=== PATIENT | female | born 1985 | race American Indian/Alaskan Native ===

== ENCOUNTER 2017-04-21 13:19 | Outpatient (CLI) | payer MEDICAID ==
[2017-04-21 15:13] LABS: Bilirubin,Urine NEG (Negative); Blood,Urine LG (Negative); Color,Urine Yellow (Yellow); Mucus,Urine FEW /HPF; Nitrite,Urine NEG (Negative); Urobilinogen,Urine < 2.0 mg/dL (<2.0)
[2017-04-21 15:19] VITALS: BP 140/80
[2017-04-21] MEDS ORDERED: LACTATED RINGERS 500 ML IV ONE (16:00)
[2017-04-21] MEDS ORDERED: XYLOCAINE 1% MPF 5 mL INFILTRATI ONE (17:00)
--- NOTE | 2017-04-21 17:32 | Ultrasound Report ---
FINAL REPORT EXAM: US OB > = 14 WEEKS FETUS HISTORY: vaginal bleeding TECHNIQUE: Ultrasound evaluation of the gravid uterus PRIORS: None. FINDINGS: There is a single viable intrauterine with documented cardiac activity. Multiple ultrasound measurements are made to determine a composite gestational age. ratios are within normal limits. No evidence of placental abruption. The inferior margin of the placenta reaches the internal cervical os. On some images it is at the margin and other images appears to completely cover the internal cervical os. This is at least marginal placenta previa and may reflect complete placenta previa. The maternal cervix is closed, containing nonspecific slight fluid. The quantity of visualized amniotic fluid appears grossly normal. No sonographic abnormality in the visualized portion of the anatomy. Heart rate: 149 beats per minute position: Cephalic Placental position: Posterior Maternal cervix length: 3.7cm Amniotic fluid index: 14.0cm Estimated weight: 1557 g Growth percentile by ultrasound: 7 Ultrasound estimated gestational age: 30 weeks 1 day Ultrasound estimated delivery date: 06/29/2017 LMP estimated gestational age: 31 week 6 days LMP estimated delivery date: 06/17/2017 IMPRESSION: Single viable intrauterine with the above parameters ratios within normal limits but growth percentile by ultrasound is 7 % At least marginal placenta previa. Some images suggest possibility of complete placenta previa Nonspecific slight fluid in the endocervical canal
[2017-04-21] MEDS ORDERED: ZITHROMAX PO ONE (18:00)
[2017-04-21] MEDS ORDERED: ROCEPHIN IM ONE (18:00)
== END 2017-04-21 17:20 | disposition home or self-care (01) ==
LOC: TRG 13:19
PROVIDERS: ATTEND Obstetrics & Gynecology
DX: O47.03 False labor before 37 completed weeks of gestation, third trimester (principal); Z3A.30 30 weeks gestation of pregnancy
CPT/HCPCS: 59025; 76805; 81001; J0696

== ENCOUNTER 2017-05-31 07:30 | Inpatient (IN) | payer MEDICAID ==
--- NOTE | 2017-05-31 22:56 | History and Physical Report ---
History of Present Illness Date of examination: 06/01/17 Chief complaint: Scheduled section History of present illness: Pt is a 31 year old -[place] HERMES 06/17/17 at 37w5d who presents for scheduled section secondary to placenta previa. She denies contractions, vaginal bleeding or leakage of fluid. She has had care at [facility] x 2 visits after transfer into care from [facility] with comanagement by MFM for placenta previa, chronic hypertension, h/o preeclampsia and IUGR. She has a h/o genital herpes without lesion or prodrome and gonorrhea this treated with negative test of cure. 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: gonorrhea (treated with negative test of cure ), herpes Family/Genetic History: diabetes Social history: no significant social history - Obstetrical History Expected Date of Delivery: 06/17/17 Actual Gestation: 37 Week(s) 4 Day(s) : 4 Para: 1 Hx # Term Pregnancies: 1 Number of Pregnancies: 0 Spontaneous Abortions: 0 Induced : 2 Number of Living Children: 1 Medications and Allergies Allergies Allergy/AdvReac Type Severity Reaction Status Date / Time No Known Allergies Allergy Verified 04/30/14 15:51 Home Medications Medication Instructions Recorded Confirmed Last Taken Type 19 Chewable Tablet 1 tab PO DAILY 06/04/14 08/20/14 1 Day Ago History ~06/03/14 1 Valacyclovir HCl [Valtrex] 1,000 mg PO DAILY 08/20/14 08/20/14 Unknown History Active Meds: Active Medications Citric Acid/Sodium Citrate (Bicitra) 30 ml PO ONCE ONE Stop: 06/01/17 05:01 Famotidine (Pepcid) 20 mg IV ONCE ONE Stop: 06/01/17 05:01 Cefazolin Sodium (Ancef/Sterile Water 2 Gm/20 Ml) 2 gm in 20 mls @ 80 mls/hr IV PREOP NR; Protocol Parenteral Electrolytes (Normosol-R Ph 7.4) 1,000 mls @ 2,250 mls/hr IV PREOP PARKER Stop: 06/02/17 05:27 Oxytocin/Sodium Chloride (Pitocin/Ns 20 Unit/1000ml Drip) 20 units in 1,000 mls @ 0 mls/hr IV TITR PARKER Metoclopramide HCl (Reglan) 10 mg IV ONCE ONE Stop: 06/01/17 05:01 Review of Systems All systems: negative - Physical Exam Breasts: Positive: deferred Abdomen: Positive: soft (gravid) Uterus: Positive: enlarged (gravid) Extremities: Positive: normal - Obstetrical FHR: auscultation normal Uterine Contraction Monitor Mode: External Uterine Contraction Pattern: Absent Uterine Tone Measurement Phase: Resting Results All other labs normal. Assessment and Plan A: IUP at 37w5d Placenta previa IUGR Chronic hypertension H/o preeclampsia Genital Herpes P: Proceed with primary section and other indicated procedures.
[2017-06-01] MEDS ORDERED: PITOCin/NS 20 UNIT/1000ML DRIP 20 UNITS/1,000 ML BAG IV SCH (05:00)
[2017-06-01] MEDS ORDERED: BICITRA PO NR (05:00)
[2017-06-01] MEDS ORDERED: NORMOSOL-R PH 7.4 1,000 ML IV SCH (05:00)
[2017-06-01] MEDS ORDERED: PEPCID IV NR (05:00)
[2017-06-01 06:00] LABS: Basophils % (Auto) 0.5 % (0.0-1.8); Eosinophils % (Auto) 0.5 % (0.0-4.3); Hematocrit 37.2 % (30.3-42.9); Hemoglobin 12.2 gm/dl (10.1-14.3); Lymphocytes % (Auto) 22.2 % (13.4-35.0); Mean Corpuscular HGB Conc 33 % (30-34); Mean Corpuscular Hemoglobin 28 pg (28-32); Mean Corpuscular Volume 84 fl (79-97); Monocytes # (Auto) 0.5 K/mm3 (0.0-0.8); Monocytes % (Auto) 5.5 % (0.0-7.3); Platelet Count 227 K/mm3 (140-440); Red Blood Count 4.41 M/mm3 (3.65-5.03); Red Cell Distribution Width 13.8 % (13.2-15.2)
[2017-06-01] MEDS ORDERED: ANCEF/STERILE WATER 2 GM/20 ML 2 GM/20 ML SYRINGE IV NR (06:00)
[2017-06-01] MEDS: REGLAN IV NR ×2 (07:13→16:30)
--- NOTE | 2017-06-01 07:28 | Anesthesia Day of Surgery ---
Anesthesia Day of Surgery - Day of Surgery Patient Examined: Yes Patient H&P Reviewed: Yes Patient is NPO: Yes
--- NOTE | 2017-06-01 07:29 | Anesthesia Consultation ---
Anesthesia Consult and Med Hx Date of service: 06/01/17 - Airway Anesthetic Teeth Evaluation: Good ROM Head & Neck: Adequate Mental/Hyoid Distance: Adequate Mallampati Class: Class III Intubation Access Assessment: Possibly Difficult - Pulmonary Exam CTA: Yes - Cardiac Exam Cardiac Exam: RRR - Pre-Operative Health Status ASA Pre-Surgery Classification: ASA2 Proposed Anesthetic Plan: Spinal - Pulmonary Hx Asthma: No COPD: No Hx Pneumonia: No - Cardiovascular System Hx Hypertension: Yes (in 2006 in college, not placed on medication, just bp monitoring) - Central Nervous System Hx Seizures: No Hx Psychiatric Problems: No - Endocrine Hx Renal Disease: No Hx End Stage Renal Disease: No Hx Hypothyroidism: No Hx Hyperthyroidism: No - Hematic Hx Anemia: No Hx Sickle Cell Disease: No - Other Systems Hx Alcohol Use: No
[2017-06-01] MEDS ORDERED: ASTRAMORPH PF 10MG/10ML ONE (07:30)
[2017-06-01] MEDS ORDERED: NACL 0.9% IR ONE (07:40)
[2017-06-01] MEDS ORDERED: WATER FOR IRRIG STERILE IR ONE (07:40)
[2017-06-01] MEDS: PITOCin/NS 20 UNIT/1000ML DRIP 20 UNITS/1,000 ML BAG IV SCH ×2 (08:10→09:58)
--- NOTE | 2017-06-01 08:56 | Procedure Note ---
OB Delivery Note - Delivery Date of Delivery: 06/01/17 Surgeon: CHELA SALDAÑA Estimated blood loss: other (700 mL) - Section Preop diagnosis: other (Placenta Previa ) Postop diagnosis: same section procedure: section, primary low transverse Disposition: PACU Complications: none Narrative: Please see operative report. - Infant A at 1 minute: 9 at 5 minutes: 9 Infant Gender: Female (2717g (6lb 0 oz) @ 0808 am)
--- NOTE | 2017-06-01 09:00 | Operative Report ---
Operative Report Operative Report: Date of procedure: June 01, 2017 Preoperative diagnosis: 1) IUP at 37w5d 2) Placenta Previa 3) IUGR 4) Chronic HTN Postoperative diagnosis: Same Procedure: Primary low transverse section Surgeon: Ashleigh Vigil M.D. Anesthesia: Spinal Findings: 1) Viable female , Apgars 9 and 9, weight 2717g, (6 lb 0 oz) in vertex presentation 2) Normal-appearing uterus ovaries and tubes Estimated blood loss: 700 mL IV fluids:1100 mL Urine output: 50 mL, clear at the end of the procedure Drains: Owens to gravity Specimens: Placenta to pathology Complications: None. Counts correct x 3 Disposition: Stable to PACU Indication for procedure: Pt is a 31 year old at 37w5d with placenta previa, IUGR and chronic hypertension who presents for scheduled . Operation in detail: After the risks, benefits, alternatives and complications were explained to the patient she gave informed consent for the procedure. She was subsequently taken to the operating room where spinal anesthesia was noted to be adequate. She was subsequently placed in the dorsal supine position with leftward tilt and prepped and draped in a normal sterile fashion. heart tones were noted to be in the 160s prior to incision. A timeout was performed. A Pfannenstiel skin incision was made with the knife and carried down to the layer of the fascia with the Bovie. The fascia was incised in the midline and the fascial incision was extended bilaterally with the Bovie. Attention was then turned to the superior aspect of the incision which was grasped with two Kochers, tented up, and dissected off the rectus muscles. Attention was then turned to the inferior aspect of the incision which was grasped with two Kochers , tented up and dissected off the rectus muscles. The rectus muscles were then in the midline. The peritoneum was then entered bluntly. The peritoneal incision was extended with good visualization of the bladder. The peritoneal incision was then stretched. An Andrew self-retaining retractor was placed for visualization. The bladder blade was placed. The vesicouterine peritoneum was grasped with smooth pickups and incised with Metzenbaum scissors. Metzenbaum scissors were used to extend the incision bilaterally. The bladder flap was then created digitally and the bladder blade was replaced. A transverse incision was made in the lower uterine segment with a knife and extended bilaterally with the bandage scissors. Amniotomy revealed clear fluid. The head was delivered without difficulty followed by shoulders and body. was bulb suctioned at delivery. The cord was clamped and cut and the was handed to NICU staff in attendance. Cord blood was collected. The placenta was then delivered manually. The uterus was then cleared of all clots and debris. The hysterotomy was then reapproximated with 0 Vicryl in a running locked fashion. A second layer of the same suture was used in imbricating fashion. The hysterotomy was inspected and hemostasis was noted. The Andrew self-retaining retractor was removed. The gutters were irrigated and cleared of all clots and debris. The hysterotomy was again inspected and noted to be hemostatic. Surgicel was placed over the hysterotomy. The peritoneum was reapproximated with 2-0 Vicryl in a running fashion incorporating the rectus muscles. Surgicel was placed over the rectus muscles. The fascia was reapproximated with 0 Vicryl in a running fashion. The subcutaneous tissue was reapproximated with 2-0 Vicryl in a running fashion. The skin was reapproximated with 4-0 Vicryl. The incision was then covered with steri strips and a pressure dressing. The procedure was then ended. The patient tolerated the procedure well and was taken to the PACU in stable condition. All instrument, lap, and needle counts were correct 3.
[2017-06-01] MEDS ORDERED: DILAUDID IV PRN ×3 (09:12→09:18)
[2017-06-01] MEDS ORDERED: NARCAN 0.4 MG/1 ML IV PRN ×2 (09:12→09:18)
[2017-06-01] MEDS ORDERED: SODIUM CHLORIDE FLUSH SYRINGE 10 ML IV SCH (09:18)
[2017-06-01] MEDS ORDERED: MYLICON PO PRN (09:18)
[2017-06-01] MEDS ORDERED: TYLENOL PO PRN (09:18)
[2017-06-01] MEDS ORDERED: LANSINOH TP PRN (09:18)
[2017-06-01] MEDS ORDERED: ZOFRAN IV PRN (09:18)
[2017-06-01] MEDS ORDERED: TUCKS PAD TP PRN (09:18)
[2017-06-01] MEDS ORDERED: ANCEF/NS 1 GM/50 ML 1 GM/50 ML BAG IV SCH (10:00)
[2017-06-01] MEDS ORDERED: SODIUM CHLORIDE FLUSH SYRINGE 10 ML IV NR (10:00)
[2017-06-01] MEDS: ZOFRAN IV PRN (11:30)
[2017-06-01] MEDS: FEOSOL PO SCH (12:34)
[2017-06-01] MEDS: ceFAZolin 1 GM in NACL 0.9% 20 ML IV SCH (15:30)
[2017-06-01] MEDS: TORADOL IV PRN (16:10)
[2017-06-01] MEDS ORDERED: REGLAN IV ONE (17:00)
[2017-06-01] MEDS: D5LR 1,000 ML IV SCH (17:28)
[2017-06-01] MEDS ORDERED: REGLAN IV PRN (17:39)
[2017-06-01 20:42] LABS: Hematocrit 33.8 % (30.3-42.9); Hemoglobin 10.8 gm/dl (10.1-14.3)
[2017-06-02] MEDS: TORADOL IV PRN (00:08)
[2017-06-02] MEDS: D5LR 1,000 ML IV SCH (00:08)
[2017-06-02] MEDS: ceFAZolin 1 GM in NACL 0.9% 20 ML IV SCH (00:54)
[2017-06-02] MEDS: ZOFRAN IV PRN (05:05)
[2017-06-02] MEDS ORDERED: BOOSTRIX IM ONE (06:00)
[2017-06-02] MEDS ORDERED: M-M-R II VACCINE SUB-Q ONE (09:02)
[2017-06-02] MEDS: FEOSOL PO SCH (11:13)
[2017-06-02] MEDS: MOTRIN PO PRN ×2 (11:21→17:31)
--- NOTE | 2017-06-02 13:05 | Progress Note ---
Assessment and Plan O: VSS AF PP H/H: 10.8/33.8 A: Stable POD #1 Mild Anemia P: Routine orders iron Subjective - Subjective Date of service: 06/02/17 Patient reports: appetite normal (nausea resolved this am around 5 am, tolerating regular diet), voiding normally, pain well controlled, flatus, ambulating normally [place]: doing well Objective - Vital Signs Latest vital signs: Vital Signs Temp Pulse Resp BP BP Pulse Ox 06/02/17 08:41 98.2 F 80 18 121/78 100 06/02/17 06:36 98.1 F 77 18 113/60 99 06/02/17 02:22 98.1 F 79 18 113/66 99 06/02/17 00:38 18 06/02/17 00:08 18 06/01/17 22:22 98.3 F 78 20 110/70 98 06/01/17 15:59 97.9 F 88 18 125/79 97 Intake and Output 06/01/17 06/02/17 06/02/17 22:59 06:59 14:59 Intake Total 1193.333 Output Total 400 300 Balance -400 893.333 Intake: IV 833.333 D5lr 1,000 ml @ 125 mls/ 833.333 hr IV DIRECT PARKER Rx#: [id number] Intake, Free Water 360 Output: Urine 400 300 Indwelling Catheter 400 Void 300 Other: Total, Output Amount 100 300 - Exam Breasts: Present: deferred Lungs: Present: Normal air movement Abdomen: Present: normal appearance, soft. Absent: distention Vulva: both: normal Uterus: Present: normal, firm, tenderness (post op), fundal height below umbilicus (2 below U, ML). Absent: bogginess Extremities: Present: normal Incision: Present: normal, dry, intact, dressed
[2017-06-02] MEDS: MILK OF MAGNESIA PO SCH ×2 (15:20→17:31)
[2017-06-02] MEDS: PERCOCET 5/325 PO PRN (22:46)
[2017-06-03] MEDS: MOTRIN PO PRN ×3 (04:10→20:23)
[2017-06-03] MEDS: MILK OF MAGNESIA PO SCH ×4 (04:11→16:11)
[2017-06-03] MEDS: PERCOCET 5/325 PO PRN ×3 (04:11→20:24)
[2017-06-03] MEDS: FEOSOL PO SCH ×2 (11:15)
--- NOTE | 2017-06-03 15:02 | Discharge Summary ---
Providers - Providers Date of Admission: 06/01/17 05:24 Date of discharge: 06/04/17 Attending physician: CHELA SALDAÑA Primary care physician: CHELA SALDAÑA Hospitalization Reason for admission: IUP at term Delivery: Procedure: section, primary low transverse Episiotomy: none Laceration: none Incision: normal, dry, intact Other procedures: none Discharge diagnosis: IUP at term delivered [place] baby: male Condition at discharge: Good Disposition: DC-01 TO HOME OR SELFCARE Plan - Discharge Medications Prescriptions: Ibuprofen [Motrin] 800 mg PO Q8HR PRN #30 tablet PRN Reason: Pain oxyCODONE /ACETAMINOPHEN [Percocet 5/325] 1 tab PO Q6HR PRN #40 tablet PRN Reason: Pain - Provider Discharge Summary Activity: routine, no sex for 6 weeks, no heavy lifting 4 weeks, no strenuous exercise Diet: routine Instructions: routine Additional instructions: [] Smoking cessation referral if applicable(refer to patient education folder for contact #) [] Refer to [facility] Call your doctor immediately for: * Fever > 100.5 * Heavy vaginal bleeding ( >1 pad per hour) * Severe persistent headache * Shortness of breath * Reddened, hot, painful area to leg or breast * Drainage or odor from incision. * Keep incision clean and dry at all times and follow doctor's instructions regarding bathing/showering - Follow up plan Follow up: CHELA SALDAÑA MD [Primary Care Provider] - 14 Days (RTO 2 weeks incision check. Call office to schedule infant circumcision)
[2017-06-04] MEDS: MOTRIN PO PRN ×2 (04:29→11:35)
[2017-06-04] MEDS: PERCOCET 5/325 PO PRN ×2 (04:29→11:35)
[2017-06-04] MEDS: MILK OF MAGNESIA PO SCH ×2 (06:00)
[2017-06-04] MEDS: FEOSOL PO SCH (11:34)
[2017-06-04 13:38] VITALS: BP 138/91
== END 2017-06-04 13:30 | disposition home or self-care (01) | DRG 765 ==
LOC: APU 06-01 05:24 → OB 06-01 11:29
PROVIDERS: ADMIT Obstetrics & Gynecology; ATTEND Obstetrics & Gynecology
PROC: 10D00Z1 Extraction of Products of Conception, Low, Open Approach (ICD-10-PCS; principal; 2017-06-01)
PROC: 3E0234Z Introduction of Serum, Toxoid and Vaccine into Muscle, Percutaneous Approach (ICD-10-PCS; 2017-06-02)
DX: O44.03 Complete placenta previa NOS or without hemorrhage, third trimester (principal); O98.32 Other infections with a predominantly sexual mode of transmission complicating childbirth; O10.92 Unspecified pre-existing hypertension complicating childbirth; Z3A.37 37 weeks gestation of pregnancy; Z37.0 Single live birth; Z23 Encounter for immunization; O36.5930 Maternal care for other known or suspected poor fetal growth, third trimester, not applicable or unspecified; A60.00 Herpesviral infection of urogenital system, unspecified; O90.81 Anemia of the puerperium; D64.9 Anemia, unspecified
CPT/HCPCS: 36415; 85014; 85018; 85025; 86850; 86900; 86901; 88307; 90471; 90715; J0690; J1885; J2274; J2405; J2590; J2765; J7121

== ENCOUNTER 2017-06-18 08:58 | Inpatient (IN) | payer MEDICAID, OTHER ==
[2017-06-18] MEDS ORDERED: APRESOLINE IV PRN (13:27)
[2017-06-18] MEDS ORDERED: MOTRIN PO PRN (13:27)
[2017-06-18] MEDS ORDERED: CALCIUM GLUCONATE IV ONE (13:27)
[2017-06-18] MEDS ORDERED: PERCOCET 5/325 PO PRN (13:27)
[2017-06-18] MEDS ORDERED: NORMODYNE PO ONE ×2 (13:27→23:45)
[2017-06-18] MEDS ORDERED: MAGNESIUM SULFATE 4GM/100ML 4 GM/100 ML BAG IV ONE (13:27)
--- NOTE | 2017-06-18 13:34 | History and Physical Report ---
History of Present Illness Date of examination: 06/18/17 Chief complaint: sent from the office with elevated blood pressures History of present illness: Pt is a 32 year old -[place] female s/p primary section on 06/01/17 with a h/o chronic hypertension who presents to the office with blood pressures 170/104 and 190/110 despite taking labetalol 100mg BID. She denies headache, blurry vision or RUQ pain. 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: gonorrhea (treated with negative test of cure), herpes Family/Genetic History: diabetes Social history: no significant social history - Obstetrical History : 4 Para: 2 Hx # Term Pregnancies: 2 Number of Pregnancies: 0 Spontaneous Abortions: 0 Induced : 2 Number of Living Children: 2 Medications and Allergies Allergies Allergy/AdvReac Type Severity Reaction Status Date / Time No Known Allergies Allergy Verified 04/30/14 15:51 Home Medications Medication Instructions Recorded Confirmed Last Taken Type 19 Chewable Tablet 1 tab PO DAILY 06/04/14 06/01/17 1 Day Ago History ~06/03/14 1 Valacyclovir HCl [Valtrex] 1,000 mg PO DAILY 08/20/14 06/01/17 Unknown History Ibuprofen [Motrin] 800 mg PO Q8HR PRN #30 tablet 06/02/17 Unknown Rx oxyCODONE /ACETAMINOPHEN [Percocet 1 tab PO Q6HR PRN #40 tablet 06/02/17 Unknown Rx 5/325] Active Meds: Active Medications Calcium Gluconate (Calcium Gluconate) 1,000 mg IV ONCE ONE Stop: 06/18/17 13:28 Ferrous Sulfate (Feosol) 325 mg PO BID PARKER Hydralazine HCl (Apresoline) 5 mg IV Q30MIN PRN PRN Reason: Hypertension Lactated Ringer's (Lactated Ringers) 1,000 mls @ 125 mls/hr IV DIRECT PARKER Magnesium Sulfate (Magnesium Sulfate 40gm/1000ml) 40 gm in 1,000 mls @ 25 mls/ hr IV DIRECT PARKER Magnesium Sulfate (Magnesium Sulfate 4gm/100ml) 4 gm in 100 mls @ 300 mls/hr IV ONCE ONE Stop: 06/18/17 13:46 Ibuprofen (Motrin) 800 mg PO Q8H PRN PRN Reason: Pain Labetalol HCl (Normodyne) 300 mg PO BID ONE Stop: 06/18/17 13:28 Oxycodone/Acetaminophen (Percocet 5/325) 1 tab PO Q6H PRN PRN Reason: Pain, Moderate (4-6) Review of Systems All systems: negative - Physical Exam Breasts: Positive: deferred Cardiovascular: Regular rate Lungs: Positive: Clear to auscultation Abdomen: Positive: soft, normal bowel sounds Extremities: Positive: normal Results All other labs normal. Assessment and Plan A: Chronic hypertension with superimposed preeclampsia s/p primary section on 06/01/17 P: Admit to Mother/Baby Unit IV Magnesium sulfate for seizure prophylaxis Increase labetalol to 300 mg BID UDS Continue to monitor
[2017-06-18] MEDS ORDERED: MAGNESIUM SULFATE 40GM/1000ML 40 GM/1,000 ML BAG IV SCH (14:00)
[2017-06-18] MEDS: LACTATED RINGERS 1,000 ML IV SCH (21:44)
[2017-06-18 22:02] LABS: Hematocrit 37.3 % (30.3-42.9); Hemoglobin 12.2 gm/dl (10.1-14.3); Mean Corpuscular HGB Conc 33 % (30-34); Mean Corpuscular Hemoglobin 27 pg (28-32); Mean Corpuscular Volume 83 fl (79-97); Platelet Count 323 K/mm3 (140-440); Red Blood Count 4.49 M/mm3 (3.65-5.03); Red Cell Distribution Width 13.9 % (13.2-15.2)
[2017-06-18 22:19] LABS: Alanine Aminotransferase 13 units/L (7-56); Uric Acid 4.9 mg/dL (3.5-7.6)
[2017-06-18] MEDS: FEOSOL PO SCH (23:36)
[2017-06-19 00:05] LABS: Bilirubin,Urine NEG (Negative); Blood,Urine NEG (Negative); Color,Urine Yellow (Yellow); Mucus,Urine 2+ /HPF; Protein,Urine <15 mg/dL mg/dL (Negative); RBC,Urine < 1.0 /HPF (0.0-6.0); Urobilinogen,Urine < 2.0 mg/dL (<2.0)
[2017-06-19 00:24] LABS: Amphetamine Screen,Urine PRESUMPTIVE NEGATIVE; Benzodiazepines Screen,Urine PRESUMPTIVE NEGATIVE; Cannabinoid Screen,Urine PRESUMPTIVE NEGATIVE; Cocaine Screen,Urine PRESUMPTIVE NEGATIVE; Methadone Screen,Urine PRESUMPTIVE NEGATIVE; Opiate Screen,Urine PRESUMPTIVE NEGATIVE
[2017-06-19] MEDS: LACTATED RINGERS 1,000 ML IV SCH (05:04)
--- NOTE | 2017-06-19 08:59 | Progress Note ---
Assessment and Plan - Patient Problems (1) Preeclampsia in period Current Visit: Yes Status: Acute Plan to address problem: complete magnesium therapy add procardia XL to regimen (2) Gestational hypertension Current Visit: No Status: Acute Subjective - Subjective Date of service: 06/19/17 Interval history: Patient without any significant complaints. Improved blood pressures on magnesium but not normotensive. Labs unremarkable. Patient will complete 24hours of magnesium therapy. Patient reports: appetite normal, voiding normally Objective - Vital Signs Latest vital signs: Vital Signs Temp Pulse Resp BP BP Pulse Ox 06/19/17 07:27 98.5 F 72 18 167/104 97 06/19/17 06:02 98.5 F 78 18 150/94 06/19/17 05:34 98.0 F 71 20 171/97 99 06/19/17 03:30 98.0 F 71 148/86 96 06/18/17 23:44 98.5 F 88 150/94 06/18/17 23:37 88 160/90 06/18/17 23:06 98.6 F 67 20 197/104 99 06/18/17 20:52 98 F 66 20 167/97 Intake and Output 06/18/17 06/19/17 06/19/17 22:59 06:59 14:59 Intake Total 1276.667 Output Total 1100 Balance 176.667 Intake: IV 916.667 Lactated Ringers 1,000 ml 916.667 @ 125 mls/hr IV DIRECT PARKER Rx#:[id number] Intake, Free Water 360 Output: Urine 1100 Indwelling Catheter 1100 Other: Total, Output Amount 1100 Voiding Method Indwelling Catheter Indwelling Catheter Weight 79.832 kg - Labs Labs: Abnormal lab results 06/18/17 06/18/17 06/19/17 Range/Units 21:33 21:33 04:29 MCH 27 L (28-32) pg Magnesium 3.80 H (1.7-2.3) mg/dL Lactate Dehydrogenase 229 H (91-180) units/L
[2017-06-19] MEDS: PROCARDIA XL PO SCH (10:59)
[2017-06-19] MEDS: FEOSOL PO SCH (10:59)
[2017-06-19] MEDS: NORMODYNE PO SCH (12:48)
[2017-06-20] MEDS: NORMODYNE PO SCH ×2 (00:04→10:35)
[2017-06-20] MEDS: FEOSOL PO SCH ×2 (00:05→10:35)
--- NOTE | 2017-06-20 09:30 | Progress Note ---
Assessment and Plan A: Chronic hypertension with superimposed preeclampsia s/p 24 hr of magnesium sulfate tocolysis s/p primary section on 06/01/17 P: Discharge home today with follow up in 1 week. Subjective - Subjective Date of service: 06/20/17 Principal diagnosis: Chronic HTN with superimposed preeclampsia Interval history: Pt without complaints. No PIH symptoms. Patient reports: appetite normal, voiding normally, ambulating normally Objective - Vital Signs Latest vital signs: Vital Signs Temp Pulse Pulse Resp BP BP Pulse Ox 06/20/17 08:05 98.6 F 86 18 138/99 96 06/20/17 04:40 98.7 F 91 H 18 114/79 06/20/17 00:40 98.5 F 85 18 138/93 06/20/17 00:04 86 145/93 06/19/17 22:17 99 F 98 H 16 131/85 06/19/17 20:39 98.9 F 84 16 144/95 06/19/17 19:45 84 06/19/17 16:10 97.7 F 94 H 18 135/89 97 06/19/17 11:57 98.3 F 97 H 18 155/99 100 Intake and Output 06/19/17 06/20/17 06/20/17 22:59 06:59 14:59 Intake Total 720 240 Output Total 3750 600 Balance -3030 -360 Intake: Intake, Free Water 720 240 Output: Urine 3750 600 Indwelling Catheter 3750 Void 600 Other: Total, Output Amount 900 600 Voiding Method Indwelling Catheter - Exam Breasts: Present: deferred Cardiovascular: Present: Regular rate Lungs: Present: Clear to auscultation Abdomen: Present: soft Extremities: Present: normal Incision: Present: intact - Labs Labs: Abnormal lab results 06/19/17 06/19/17 Range/Units 12:00 17:54 Magnesium 4.50 H 4.70 H (1.7-2.3) mg/dL
--- NOTE | 2017-06-20 09:33 | Discharge Summary ---
Providers - Providers Date of Admission: 06/19/17 08:58 Date of discharge: 06/20/17 Attending physician: CHELA SALDAÑA Primary care physician: CHELA SALDAÑA Hospitalization Reason for admission: other (chronic HTN with preeclampsia ) Procedure details: IV Magnesium administration Incision: intact Other procedures: none complications: none Discharge diagnosis: other (Chronic HTN with superimposed preeclampsia ) Hospital course: Pt was admitted with chronic HTN with superimposed preeclampsia. She was given IV Magnesium x 24 hrs and started on a new BP regimen labetalol 300 mg BID and Procardia XL 60 mg. She will follow up in 1 week for a BP check. Condition at discharge: Stable Disposition: DC-01 TO HOME OR SELFCARE - Discharge Diagnoses (1) Chronic hypertension Status: Acute (2) Chronic hypertension in obstetric context Status: Acute Qualifiers: Trimester: unspecified trimester Qualified Code(s): O10.919 - Unspecified pre-existing hypertension complicating , unspecified trimester (3) Preeclampsia in period Status: Acute Plan - Discharge Medications Prescriptions: Ibuprofen [Motrin] 800 mg PO Q8HR PRN #30 tablet PRN Reason: Pain Labetalol [Normodyne TAB] 300 mg PO BID #60 tablet NIFEdipine XL [Procardia Xl] 60 mg PO QDAY #30 tablet - Provider Discharge Summary Activity: routine, no sex for 6 weeks, no heavy lifting 4 weeks, no strenuous exercise Diet: routine Instructions: routine Additional instructions: [] Smoking cessation referral if applicable(refer to patient education folder for contact #) [] Refer to [facility] Booklet Call your doctor immediately for: * Fever > 100.5 * Heavy vaginal bleeding ( >1 pad per hour) * Severe persistent headache * Shortness of breath * Reddened, hot, painful area to leg or breast * Drainage or odor from incision. * Keep incision clean and dry at all times and follow doctor's instructions regarding bathing/showering - Follow up plan Follow up: CHELA SALDAÑA MD [Primary Care Provider] - 7 Days
[2017-06-20] MEDS: PROCARDIA XL PO SCH (10:35)
[2017-06-20 10:40] VITALS: BP 139/99
== END 2017-06-20 11:01 | disposition home or self-care (01) | DRG 776 ==
LOC: OB 08:58 → 3A 13:21 → UNDOADMOB 13:21 → OB 19:55 → OBSVTOIN 06-19 08:58
PROVIDERS: ADMIT Obstetrics & Gynecology; ATTEND Obstetrics & Gynecology
DX: O11.5 Pre-existing hypertension with pre-eclampsia, complicating the puerperium (principal); Z83.3 Family history of diabetes mellitus
CPT/HCPCS: 36415; 80307; 81001; 82565; 82962; 83615; 83735; 84450; 84460; 84550; 85027; G0378; G0379; J3475; J7120

== ENCOUNTER 2019-01-22 17:40 | Outpatient (CLI) | payer MEDICAID ==
[2019-01-22] MEDS ORDERED: LACTATED RINGERS 500 ML IV ONE (19:00)
[2019-01-22 19:09] LABS: Hemoglobin 11.3 gm/dl (10.1-14.3); Mean Corpuscular HGB Conc 33 % (30-34); Mean Corpuscular Volume 81 fl (79-97); Platelet Count 236 K/mm3 (140-440); Red Blood Count 4.19 M/mm3 (3.65-5.03); Red Cell Distribution Width 14.2 % (13.2-15.2)
[2019-01-22 19:22] LABS: Alanine Aminotransferase 10 units/L (7-56); Uric Acid 3.1 mg/dL (3.5-7.6)
[2019-01-22 19:33] LABS: Bilirubin,Urine NEG (Negative); Blood,Urine NEG (Negative); Color,Urine Yellow (Yellow); Mucus,Urine FEW /HPF; Urobilinogen,Urine < 2.0 mg/dL (<2.0)
[2019-01-22 19:52] VITALS: BP 151/91
== END 2019-01-22 20:27 | disposition home or self-care (01) ==
LOC: TRG 17:40
PROVIDERS: ATTEND Obstetrics & Gynecology
DX: O47.02 False labor before 37 completed weeks of gestation, second trimester (principal); Z3A.27 27 weeks gestation of pregnancy
CPT/HCPCS: 36415; 81001; 82565; 83615; 84450; 84460; 84550; 85027

== ENCOUNTER 2019-03-19 12:59 | Outpatient (CLI) | payer MEDICAID ==
[2019-03-19 14:14] LABS: Hematocrit 28.6 % (30.3-42.9); Hemoglobin 9.8 gm/dl (10.1-14.3); Mean Corpuscular HGB Conc 34 % (30-34); Mean Corpuscular Volume 78 fl (79-97); Platelet Count 206 K/mm3 (140-440); Red Blood Count 3.67 M/mm3 (3.65-5.03); Red Cell Distribution Width 14.2 % (13.2-15.2)
[2019-03-19 14:24] LABS: Bilirubin,Urine NEG (Negative); Blood,Urine NEG (Negative); Color,Urine Yellow (Yellow); Mucus,Urine FEW /HPF; Protein,Urine <15 mg/dL mg/dL (Negative); Urobilinogen,Urine < 2.0 mg/dL (<2.0)
[2019-03-19 14:29] LABS: Alanine Aminotransferase 12 units/L (7-56)
[2019-03-19 15:25] VITALS: BP 140/92
--- NOTE | 2019-03-19 16:51 | Ultrasound Report ---
ULTRASOUND OBSTETRIC LIMITED ULTRASOUND BIOPHYSICAL PROFILE INDICATION / CLINICAL INFORMATION: Assess amniotic fluid index. COMPARISON: OB ultrasound from 04/21/2017. FINDINGS: BREATHING MOVEMENT = 2 GROSS BODY MOVEMENT = 2 TONE = 2 QUALITATIVE AMNIOTIC FLUID VOLUME = 2 TOTAL BIOPHYSICAL SCORE = 8/8 AMNIOTIC FLUID INDEX (cm) = 8.2 PRESENTATION: Breech. HEART RATE (beats per minute): 136 ADDITIONAL FINDINGS: None. IMPRESSION: 1. Biophysical Score = 8/8 2. Normal CORDELL of 8.2 cm. Signer Name: Jack Aviles MD Signed: 03/19/2019 4:46 PM Workstation Name: [id number]
== END 2019-03-19 16:30 | disposition home or self-care (01) ==
LOC: TRG 12:59
PROVIDERS: ATTEND Obstetrics & Gynecology
DX: O47.03 False labor before 37 completed weeks of gestation, third trimester (principal); Z3A.35 35 weeks gestation of pregnancy
CPT/HCPCS: 36415; 59025; 76815; 76819; 81001; 82565; 83615; 84450; 84460; 84550; 85027

== ENCOUNTER 2019-03-24 16:52 | Outpatient (CLI) | payer MEDICAID ==
[2019-03-24 17:16] LABS: Bilirubin,Urine NEG (Negative); Blood,Urine NEG (Negative); Color,Urine Straw (Yellow); Mucus,Urine FEW /HPF; Protein,Urine <15 mg/dL mg/dL (Negative); Urobilinogen,Urine < 2.0 mg/dL (<2.0)
[2019-03-24 18:09] LABS: Hemoglobin 10.5 gm/dl (10.1-14.3); Mean Corpuscular HGB Conc 33 % (30-34); Mean Corpuscular Volume 79 fl (79-97); Platelet Count 222 K/mm3 (140-440); Red Blood Count 4.04 M/mm3 (3.65-5.03); Red Cell Distribution Width 14.2 % (13.2-15.2)
[2019-03-24 18:29] LABS: Alanine Aminotransferase 13 units/L (7-56)
[2019-03-24] MEDS ORDERED: TERBUTALINE 1 MG/1 ML INJ ONE (18:48)
[2019-03-24] MEDS: LACTATED RINGERS 1,000 ML IV SCH ×2 (18:55→23:26)
[2019-03-24] MEDS: TERBUTALINE 1 MG/1 ML INJ SUB-Q SCH ×2 (19:38→20:04)
[2019-03-24] MEDS ORDERED: LACTATED RINGERS 500 ML IV ONE (19:50)
--- NOTE | 2019-03-25 00:41 | Ultrasound Report ---
ULTRASOUND BIOPHYSICAL PROFILE AND LIMITED OB ULTRASOUND INDICATION / CLINICAL INFORMATION: CORDELL. well-being. COMPARISON: None available. FINDINGS: BREATHING MOVEMENT = 2 GROSS BODY MOVEMENT = 2 TONE = 2 QUALITATIVE AMNIOTIC FLUID VOLUME = 2 TOTAL BIOPHYSICAL SCORE = 8/8 AMNIOTIC FLUID INDEX (cm) = 8.4 PRESENTATION: Breech. HEART RATE (beats per minute): 167 IMPRESSION: 1. biophysical profile = 8/8 2. CORDELL 8.4 cm. Signer Name: Kimani Plata MD Signed: 03/25/2019 12:37 AM Workstation Name: [id number]
[2019-03-25] MEDS ORDERED: ALUM-MAG HYDROXIDE-SIMETHICONE 200-200-20MG/5ML ORAL LIQD 30 ML PO PRN (09:19)
[2019-03-25] MEDS ORDERED: diphenhydrAMINE 25 MG CAP PO PRN (09:19)
[2019-03-25] MEDS ORDERED: SIMETHICONE 80 MG CHEW TAB PO PRN (09:19)
[2019-03-25] MEDS ORDERED: ONDANSETRON 4 MG/2 ML INJ IV PRN (09:19)
[2019-03-25] MEDS ORDERED: DOCUSATE SODIUM 100 MG CAP PO PRN (09:19)
[2019-03-25] MEDS ORDERED: ACETAMINOPHEN 325 MG TAB PO PRN (09:19)
[2019-03-25] MEDS: BETAMET ACET/BETAMET NA PH 6 MG/ML INJ 5 ML MDV IM SCH (10:59)
[2019-03-25] MEDS: PRENATAL VIT27-FE FUMARATE-FOLIC ACID VIT TAB PO SCH (10:59)
[2019-03-25 11:36] LABS: Hematocrit 27.5 % (30.3-42.9); Hemoglobin 9.1 gm/dl (10.1-14.3); Mean Corpuscular HGB Conc 33 % (30-34); Mean Corpuscular Volume 78 fl (79-97); Platelet Count 200 K/mm3 (140-440); Red Blood Count 3.53 M/mm3 (3.65-5.03); Red Cell Distribution Width 14.2 % (13.2-15.2)
[2019-03-25 12:12] LABS: Alanine Aminotransferase 11 units/L (7-56); Uric Acid 3.5 mg/dL (3.5-7.6)
--- NOTE | 2019-03-25 17:08 | History and Physical Report ---
History of Present Illness Date of examination: 03/25/19 (T) Date of admission: 03/24/19 Chief complaint: debby MEDEIROS sent in for evaluation by [facility] History of present illness: This is a 33 yo G P at 36 weeks here for evaluation of elevated BP. She is patient of [facility] on labetolol 300 mg po qd. Past History Past Medical History: no pertinent history Past Surgical History: section Family/Genetic History: none Social history: single. denies: smoking, alcohol abuse, prescription drug abuse - Obstetrical History : 6 Medications and Allergies Allergies Allergy/AdvReac Type Severity Reaction Status Date / Time No Known Allergies Allergy Verified 04/30/14 15:51 Home Medications Medication Instructions Recorded Confirmed Last Taken Type 19 Chewable Tablet 1 tab PO DAILY 06/04/14 03/25/19 03/23/19 History labetaloL [Labetalol 100mg TAB] 300 mg PO BID #60 tablet 06/19/17 03/25/19 03/24/19 Rx Active Meds: Active Medications Acetaminophen (Tylenol) 650 mg PO Q4H PRN PRN Reason: Pain MILD(1-3)/Fever >100.5/CORDERO Al Hydrox/Mg Hydrox/Simethicone (Alum-Mag Hydrox-Simeth 906-226-08py/5ml) 30 ml PO Q6H PRN PRN Reason: Indigestion Betamethasone Acet/Betameth SodPhos (Celestone Soluspan) 12 mg IM Q24HR [facility] Stop: 03/26/19 10:01 Last Admin: 03/25/19 10:59 Dose: 12 mg Documented by: Diphenhydramine HCl (Benadryl) 25 mg PO Q6H PRN PRN Reason: Itching Docusate Sodium (Colace) 100 mg PO Q12H PRN PRN Reason: Constipation Lactated Ringer's (Lactated Ringers) 1,000 mls @ 125 mls/hr IV DIRECT PARKER Last Admin: 03/24/19 23:26 Dose: 125 mls/hr Documented by: Labetalol HCl (Labetalol) 300 mg PO DAILY [facility] Last Admin: 03/25/19 09:00 Dose: 300 mg Documented by: Magnesium Hydroxide (Milk Of Magnesia) 30 ml PO QHS PRN PRN Reason: Laxative Effect Multivitamins/Iron/Calcium ( Vitamin) 1 each PO QDAY [facility] Last Admin: 03/25/19 10:59 Dose: 1 each Documented by: Ondansetron HCl (Zofran) 4 mg IV Q6H PRN PRN Reason: Nausea And Vomiting Simethicone (Mylicon) 80 mg PO Q6H PRN PRN Reason: Gas pain Terbutaline Sulfate (Brethine) 0.25 mg SUB-Q Q20MIN [facility] Stop: 03/26/19 19:01 Last Admin: 03/24/19 20:04 Dose: 0.25 mg Documented by: Review of Systems All systems: negative - Vital Signs Vital signs: Vital Signs Pulse BP Pulse Ox 84 150/93 98 03/24/19 17:09 03/24/19 17:09 03/24/19 17:09 Temp Pulse Resp BP Pulse Ox 98.0 F 72 16 139/81 98 03/25/19 12:00 03/25/19 14:33 03/24/19 23:09 03/25/19 14:33 03/24/19 22:48 - Physical Exam Breasts: Positive: normal Cardiovascular: Regular rate, Normal S1 Lungs: Positive: Clear to auscultation, Normal air movement Abdomen: Positive: normal appearance, soft, normal bowel sounds. Negative: distention, tenderness, guarding Genitourinary (Female): Positive: normal external genitalia, normal perenium Uterus: Positive: normal size, normal contour Anus/Rectum: Positive: normal perianal skin, heme negative Extremities: Positive: normal Deep Tendon Reflex Grade: Normal +2 - Obstetrical FHR: category 1 Cervical Dilatation: 0 Results Result Diagrams: 03/25/19 10:51 03/25/19 10:51 Abnormal lab results 03/24/19 03/24/19 03/25/19 Range/Units Unknown Unknown 10:51 RBC 3.53 L (3.65-5.03) M/mm3 Hgb 9.1 L (10.1-14.3) gm/dl Hct 27.5 L (30.3-42.9) % MCV 78 L (79-97) fl MCH 26 L 26 L (28-32) pg Creatinine 0.6 L (0.7-1.2) mg/dL Uric Acid 3.0 L (3.5-7.6) mg/dL All other labs normal. Assessment and Plan IUP 36 weeks, s/p bmz x1. chronic HTN on labetolol 300 mg QD Pree labs normal 24hr urine Breech /previous csec will have to proceed with repeat csec at time of delivery closely monitor BP BPP 10/17
[2019-03-25] MEDS ORDERED: MAGNESIUM HYDROXIDE (MOM) ORAL LIQD UDC PO PRN (22:00)
--- NOTE | 2019-03-26 08:22 | Progress Note ---
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 She denies headache, blurry vision, scotomata, or RUQ pain. She reports taking labetalol 300 mg twice daily, but she was not given her evening dose last night. She denies any obstetric complaints. Patient reports: movement normal, no new complaints, no loss of fluid, no vaginal bleeding, no contractions Objective - Vital Signs Vital Signs: Vital Signs - 12hr 03/25/19 03/25/19 03/25/19 20:42 21:32 23:32 Temperature Pulse Rate 84 96 H 80 Respiratory Rate Blood Pressure 162/88 150/87 170/93 03/26/19 03/26/19 03/26/19 00:00 00:23 00:32 Temperature 98.1 F Pulse Rate 78 75 Respiratory 18 Rate Blood Pressure 147/91 145/83 03/26/19 03/26/19 03/26/19 02:32 03:32 03:34 Temperature Pulse Rate 80 80 90 Respiratory Rate Blood Pressure 165/98 182/97 169/93 03/26/19 03/26/19 03/26/19 03:35 03:40 04:00 Temperature 98 F Pulse Rate 80 85 Respiratory 18 Rate Blood Pressure 160/94 157/94 03/26/19 03/26/19 03/26/19 05:32 07:20 07:32 Temperature Pulse Rate 83 83 87 Respiratory Rate Blood Pressure 152/81 159/92 161/85 - Exam Breasts: deferred Cardiovascular: Regular rate Lungs: Clear to auscultation Abdomen: Present: soft (gravid). Absent: tenderness Uterus: Present: normal (gravid) Uterine Contraction Monitor Mode: External Uterine Contraction Pattern: Absent Uterine Tone Measurement Phase: Resting Uterine Contraction Intensity: Mild Extremities: normal - Labs Labs: Abnormal Labs 03/24/19 03/24/19 03/25/19 Unknown Unknown 10:51 RBC 3.53 L Hgb 9.1 L Hct 27.5 L MCV 78 L MCH 26 L 26 L Creatinine 0.6 L Uric Acid 3.0 L Laboratory Results - last 24 hr 03/25/19 03/25/19 10:51 10:51 WBC 6.4 RBC 3.53 L Hgb 9.1 L Hct 27.5 L MCV 78 L MCH 26 L MCHC 33 RDW 14.2 Plt Count 200 Creatinine 0.7 Estimated GFR > 60 Uric Acid 3.5 AST 18 ALT 11 Lactate Dehydrogenase 163
[2019-03-26] MEDS: PRENATAL VIT27-FE FUMARATE-FOLIC ACID VIT TAB PO SCH (10:15)
[2019-03-26 11:39] LABS: Creatinine 24 Hour,Urine 1.1 (0.8-2.8); Creatinine,Urine 38.2 mg/dL (0.1-20.0)
[2019-03-26] MEDS: BETAMET ACET/BETAMET NA PH 6 MG/ML INJ 5 ML MDV IM SCH (11:48)
--- NOTE | 2019-03-26 12:32 | Ultrasound Report ---
ULTRASOUND BIOPHYSICAL PROFILE ULTRASOUND OB LIMITED INDICATION: well being, CORDELL, TECHNIQUE: Transabdominal ultrasound imaging. COMPARISON: 03/24/2019 FINDINGS: breathing movement = 2 Gross body movement = 2 tone = 2 Qualitative amniotic fluid volume = 2 Total biophysical score = 8/8 Amniotic fluid index is 11.5 cm. Presentation is breech. heart rate is 164 beats per minute. IMPRESSION: biophysical profile equals 8/8. Breech presentation. Signer Name: Chau Chiu Jr, MD Signed: 03/26/2019 12:27 PM Workstation Name: [id number]
[2019-03-26 12:33] VITALS: BP 139/75
--- NOTE | 2019-03-26 12:53 | Discharge Summary ---
Providers - Providers Date of Admission: 03/25/19 Date of discharge: 03/26/19 Attending physician: YANETH CLARK MD Primary care physician: YANETH CLARK MD Hospitalization Reason for admission: other (elevated blood pressure ) Procedure details: 24 hr hour urine collection ultrasound Discharge diagnosis: other (IUP at 36 wks, chronic hypertension, malpresentation ) Hospital course: Pt was admitted for further observation after having elevated blood pressures in clinic. She had serial blood pressure readings and underwent a 24 hr urine collection. She had a biophysical profile and an ultrasound while hospitalized. Her 24 hr urine returned 147.5 mg of protein. Her blood pressures have remained in the mild range and the patient meets criteria for discharge. She will continue her labetalol 300 mg BID and she will have her repeat section on April 01, 2019 at 1130 am. Pt is aware. She has been given PIH precautions. Condition at discharge: Stable Disposition: DC-01 TO HOME OR SELFCARE - Discharge Diagnoses (1) Status: Acute Qualifiers: Weeks of gestation: 36 weeks Qualified Code(s): Z3A.36 - 36 weeks gestation of (2) Previous section Status: Acute (3) Malpresentation of fetus Status: Acute Qualifiers: malpresentation type: unspecified malpresentation of fetus Fetus number: single or unspecified fetus Qualified Code(s): O32.9XX0 - Maternal care for malpresentation of fetus, unspecified, not applicable or unspecified (4) Chronic hypertension in obstetric context Status: Acute Qualifiers: Trimester: third trimester Qualified Code(s): O10.913 - Unspecified pre- existing hypertension complicating , third trimester Plan - Provider Discharge Summary Activity: routine Diet: routine Additional instructions: [] Smoking cessation referral if applicable(refer to patient education folder for contact #) [] Refer to [facility] Booklet Call your doctor immediately for: * Fever > 100.5 * Heavy vaginal bleeding ( >1 pad per hour) * Severe persistent headache * Shortness of breath * Reddened, hot, painful area to leg or breast * Drainage or odor from incision. * Keep incision clean and dry at all times and follow doctor's instructions regarding bathing/showering YOUR SECTION IS SCHEDULED FOR MONDAY APRIL 01, 2019 AT 1130 AM. PLEASE ARRIVE AT THE HOSPITAL AT 9 AM. - Follow up plan Follow up: YANETH CLARK MD [Primary Care Provider] - 7 Days
--- NOTE | 2019-03-26 12:53 | Event Note ---
Date: 03/26/19 BPP 8/8. 24 hr urine protein 147.5 mg. BPs remain in mild range. Plan to discharge patient home with PIH precautions. Per M recommendations, pt will be delivered at 37 wks. Repeat section scheduled for Monday, April 01, 2019 at 1130 am. Pt is aware.
== END 2019-03-26 13:23 | disposition home or self-care (01) ==
LOC: TRG 16:52 → LD 20:09 → TRG 20:44 → LD 23:05 → TRG 03-26 13:23
PROVIDERS: ATTEND Obstetrics & Gynecology
DX: O10.913 Unspecified pre-existing hypertension complicating pregnancy, third trimester (principal); O32.1XX0 Maternal care for breech presentation, not applicable or unspecified; Z3A.36 36 weeks gestation of pregnancy
CPT/HCPCS: 36415; 76815; 76819; 81001; 82565; 82570; 83615; 84156; 84450; 84460; 84550; 85027; 86592; 86850; 86900; 86901; 96360; 96361; 96372; J0702; J3105; J7120

== ENCOUNTER 2019-04-01 09:46 | Inpatient (IN) | payer MEDICAID ==
[2019-04-01] MEDS ORDERED: LACTATED RINGERS 1,000 ML ONE (10:51)
[2019-04-01] MEDS ORDERED: OXYTOCIN 20 UNIT/1000ML DRIP 40,000 MILLIUNITS/2,000 ML BAG IV ONE (10:51)
[2019-04-01] MEDS ORDERED: FAMOTIDINE 20 MG/2 ML INJ IV ONE ×2 (10:52→10:59)
[2019-04-01] MEDS ORDERED: METOCLOPRAMIDE 10 MG/2 ML INJ ONE (10:52)
[2019-04-01] MEDS ORDERED: BICITRA ORAL LIQD 30ML ONE (10:52)
[2019-04-01] MEDS ORDERED: ceFAZolin/Water 2 GM/20 ML 2 GM/20 ML SYRINGE IV ONE (10:52)
[2019-04-01] MEDS ORDERED: METOCLOPRAMIDE 10 MG/2 ML INJ IV ONE (10:59)
[2019-04-01] MEDS ORDERED: BICITRA ORAL LIQD 30ML PO ONE (10:59)
[2019-04-01] MEDS ORDERED: OXYTOCIN 20 UNIT/1000ML DRIP 20 UNITS/1,000 ML BAG IV SCH ×2 (11:00→14:00)
[2019-04-01 11:32] LABS: Basophils % (Auto) 0.2 % (0.0-1.8); Eosinophils % (Auto) 0.3 % (0.0-4.3); Hematocrit 36.7 % (30.3-42.9); Hemoglobin 12.2 gm/dl (10.1-14.3); Lymphocytes # (Auto) 0.9 K/mm3 (1.2-5.4); Lymphocytes % (Auto) 14.8 % (13.4-35.0); Mean Corpuscular HGB Conc 33 % (30-34); Mean Corpuscular Volume 79 fl (79-97); Monocytes # (Auto) 0.5 K/mm3 (0.0-0.8); Monocytes % (Auto) 7.2 % (0.0-7.3); Platelet Count 228 K/mm3 (140-440); Red Blood Count 4.66 M/mm3 (3.65-5.03); Red Cell Distribution Width 14.6 % (13.2-15.2)
[2019-04-01] MEDS ORDERED: DEXMEDETOMIDINE 200 MCG/2 ML VIAL IV ONE (11:32)
[2019-04-01] MEDS ORDERED: ONDANSETRON 4 MG/2 ML INJ ONE ×2 (11:32)
--- NOTE | 2019-04-01 11:37 | History and Physical Report ---
History of Present Illness Date of examination: 04/01/19 Date of admission: 04/01/19 10:08 Chief complaint: Here for scheduled repeat History of present illness: This is a 33 yo at 37 weeks here for scheduled repeat csearean. She is apatient of [facility] started care at 10 weeks. 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 She has hx of cs xe for placenta previa. She had abn quad screen for ONTD but falsely positive. Past History Past Surgical History: section Social history: single. denies: smoking, alcohol abuse, prescription drug abuse - Obstetrical History Expected Date of Delivery: 04/18/19 Actual Gestation: 37 Week(s) 4 Day(s) : 5 Para: 2 Hx # Term Pregnancies: 2 Number of Pregnancies: 0 Spontaneous Abortions: 0 Induced : 2 Number of Living Children: 2 Medications and Allergies Allergies Allergy/AdvReac Type Severity Reaction Status Date / Time No Known Allergies Allergy Verified 04/30/14 15:51 Home Medications Medication Instructions Recorded Confirmed Last Taken Type 19 Chewable Tablet 1 tab PO DAILY 06/04/14 03/25/19 03/23/19 History labetaloL [Labetalol 100mg TAB] 300 mg PO BID #60 tablet 06/19/17 03/25/19 03/24/19 Rx Active Meds: Active Medications Oxytocin/Sodium Chloride (Pitocin/Ns 20 Unit/1000ml Drip) 20 units in 1,000 mls @ 0 mls/hr IV TITR [facility] Lactated Ringer's (Lactated Ringers) 1,000 mls @ 2,250 mls/hr IV PREOP [facility]ER Stop: 04/02/19 11:27 Labetalol HCl (Labetalol) 10 mg IV ONCE ONE Stop: 04/01/19 11:30 Review of Systems All systems: negative - Vital Signs Vital signs: Vital Signs Temp Resp 97.4 F L 18 04/01/19 10:40 04/01/19 10:40 Temp Pulse Resp BP Pulse Ox 97.4 F L 92 H 18 141/91 04/01/19 10:40 04/01/19 11:12 04/01/19 10:40 04/01/19 11:12 - Physical Exam Breasts: Positive: deferred Cardiovascular: Regular rate, Normal S1 Lungs: Positive: Clear to auscultation, Normal air movement Abdomen: Positive: normal appearance, soft, normal bowel sounds. Negative: distention, tenderness, guarding Genitourinary (Female): Positive: normal external genitalia, normal perenium Vulva: both: normal Uterus: Positive: normal size Anus/Rectum: Positive: normal perianal skin Extremities: Positive: normal Deep Tendon Reflex Grade: Normal +2 Results Result Diagrams: 04/01/19 10:50 Abnormal lab results 04/01/19 Range/Units 10:50 MCH 26 L (28-32) pg Lymph # 0.9 L (1.2-5.4) K/mm3 Seg Neutrophils % 77.5 H (40.0-70.0) % All other labs normal. Assessment and Plan A/P IUP 37+4 weeks scheduled repeat csec chronic HTN on meds discussed r/b/a of csec which include bleeding infection, damage to pelvic and non pelvic organs risk of hysterectomy, risk of pain, risk of hysterectomy and risk of
[2019-04-01] MEDS: LACTATED RINGERS 1,000 ML IV SCH ×2 (11:44→11:47)
[2019-04-01] MEDS ORDERED: SODIUM CHLORIDE 0.9% 100 ML ONE (12:49)
[2019-04-01] MEDS ORDERED: KETOROLAC 30 MG/1 ML INJ ONE (12:49)
[2019-04-01] MEDS ORDERED: OXYTOCIN 10 UNIT/1 ML INJ ONE (12:49)
--- NOTE | 2019-04-01 12:56 | Anesthesia Consultation ---
Anesthesia Consult and Med Hx Date of service: 04/01/19 - Airway Anesthetic Teeth Evaluation: Good ROM Head & Neck: Adequate Mental/Hyoid Distance: Adequate Mallampati Class: Class II Intubation Access Assessment: Good - Pulmonary Exam CTA: Yes - Cardiac Exam Cardiac Exam: RRR - Pre-Operative Health Status ASA Pre-Surgery Classification: ASA2 Proposed Anesthetic Plan: Spinal - Pulmonary Hx Asthma: No COPD: No Hx Pneumonia: No - Cardiovascular System Hx Hypertension: Yes (gestational) - Central Nervous System Hx Seizures: No Hx Psychiatric Problems: No - Endocrine Hx Renal Disease: No Hx End Stage Renal Disease: No Hx Hypothyroidism: No Hx Hyperthyroidism: No - Hematic Hx Anemia: No Hx Sickle Cell Disease: No - Other Systems Hx Alcohol Use: Yes (social before preg)
[2019-04-01] MEDS ORDERED: ONDANSETRON 4 MG/2 ML INJ IV PRN (12:57)
[2019-04-01] MEDS ORDERED: PROMETHAZINE 25 MG TAB PO PRN (12:57)
[2019-04-01] MEDS ORDERED: HYDROmorphone 1 MG/1 ML INJ IV PRN ×2 (12:57)
[2019-04-01] MEDS ORDERED: PROMETHAZINE 25 MG RECT SUPP PR PRN (12:57)
[2019-04-01] MEDS ORDERED: NALOXONE 0.4 MG/1 ML INJ IV PRN ×2 (12:57→13:06)
--- NOTE | 2019-04-01 12:57 | Anesthesia Day of Surgery ---
Anesthesia Day of Surgery - Day of Surgery Patient Examined: Yes Patient H&P Reviewed: Yes Patient is NPO: No Beta Blockers: No (pt last took 03/31/2019 in the am)
[2019-04-01] MEDS ORDERED: ACETAMINOPHEN 325 MG TAB PO PRN (13:06)
[2019-04-01] MEDS ORDERED: HYDROCORTISONE 25 MG RECTAL SUPP PR PRN (13:06)
[2019-04-01] MEDS ORDERED: KETOROLAC 30 MG/1 ML INJ IV PRN (13:06)
[2019-04-01] MEDS ORDERED: LANOLIN/ZINC/DIMETHICONE (LANSINOH) 7 GM TP PRN (13:06)
[2019-04-01] MEDS ORDERED: WITCH HAZEL/ GLYCERIN PAD TP PRN (13:06)
[2019-04-01] MEDS ORDERED: MORPHINE 4 MG/1 ML INJ IV PRN (13:06)
[2019-04-01] MEDS ORDERED: SIMETHICONE 80 MG CHEW TAB PO PRN (13:06)
--- NOTE | 2019-04-01 13:11 | Procedure Note ---
OB Delivery Note - Delivery Date of Delivery: 04/01/19 Surgeon: YANETH CLARK Estimated blood loss: other (600cc) - Section Preop diagnosis: repeat Postop diagnosis: same section procedure: section Disposition: PACU Complications: none Narrative: see op note - Infant A at 1 minute: 9 at 5 minutes: 9 Gender: Female (weight 6 pounds 7.6 oz)
--- NOTE | 2019-04-01 13:16 | Operative Report ---
Operative Report Operative Report: DATE OF OPERATION: 04/01/19 PREOPERATIVE DIAGNOSES: 1. Intrauterine gestation at 37 weeks, in active labor, second stage. 2. Previous csec x1 3.Desires repeat POSTOPERATIVE DIAGNOSES: 1-3 MIGUEL 4. Breech OPERATION PERFORMED: Primary low transverse section. SURGEON: Karen Woodruff MD ANESTHESIA: Spinal COMPLICATIONS: None. ESTIMATED BLOOD LOSS: 600 mL. DRAINS: Owens catheter to the bladder. SPECIMENS TO PATHOLOGY: Cord blood for routine testing. OPERATIVE FINDINGS: A viable female with Apgars of 9 and 9 and birthweight of 6 pounds 7.6 ounces was delivered from a breech persistent occiput posterior position. There was marked caput and molding present on the head. Cord pH was 7.42. The cord contained 3 vessels. There was normal anterior fundal placenta. The amniotic fluid was clear. The uterus, fallopian tubes and ovaries were normal. DESCRIPTION OF OPERATION: The patient was brought to the operating suite in stable condition with epidural anesthesia on board and an indwelling catheter in place in the bladder. The patient was placed supine on the operating room table and rolled to her left side with a wedge. The abdomen was prepped and draped in standard fashion for section. After testing with forceps to assure an adequate anesthetic level, the surgery was commenced. We had counseled the patient extensively regarding the risks of the surgery including but not limited to stroke, embolus, phlebitis, pain, infection, hemorrhage, as well as injury to the infant and the internal organs such as the bowel, bladder, blood vessels, nerves, kidneys, ureters and pelvic organs. The patient was aware of the postoperative morbidity issues and recovery timeframes. The patient was aware she can form adhesions, which can result in obstruction of loop of bowel or ureter or chronic pain. She was aware that should she have hemorrhage and require blood transfusion, there was a small chance for exposure to hepatitis or HIV disease. With the scalpel, a Pfannenstiel skin incision was made. Dissection was carried down sharply through the subcutaneous tissues and fascia in a transverse plane with the scalpel, electrocautery and curved Laurent scissors. The fascia was sharply freed up superiorly and inferiorly from the underlying rectus muscles, which were bluntly and sharply divided. The peritoneum was entered carefully in a clear space with a curved hemostat. The peritoneal incision was then extended vertically with Metzenbaum scissors. A retractor and bladder blade were placed. A bladder flap was created by incising transversely through the peritoneum and vesicouterine fold and then bluntly dissecting the bladder distally. With the scalpel, a low transverse hysterotomy was commenced. The serosa and myometrium were scored with the scalpel. The uterine cavity was actually entered bluntly with a curved hemostat. The uterine incision was then extended laterally with the diesel roller operator's fingers. An intrauterine hand was placed and buttocks grapped and normal steps to delivery from breech presentation. With fundal pressure, she was delivered without difficulty. The nasopharynx and oropharynx were suctioned. The cord was doubly clamped and transected. The was then handed off to the nursery personnel. Apgars were good at 9 and 9. A cord pH was obtained, which subsequently revealed a normal value. Further cord blood was collected for routine testing. Intravenous Pitocin and antibiotics were administered. The placenta was manually removed. The uterine cavity was then curetted with a dry sponge and freed of the remaining membranes. The edges of the uterine incision were grasped with Rogers clamps. With the massage and the Pitocin, the uterus began to firm up normally. The uterine incision was then closed in 2 layers of 0 Vicryl sutures. The first suture was placed to the endometrium and myometrium. The second suture was placed through the endopelvic fascia and also reincorporated the bladder flap peritoneum. Peritoneal lavage was then performed. The pelvis and gutters were irrigated and suctioned and cleared of all blood and clots and amniotic fluid. The uterine incision was reinspected to assure hemostasis. The uterus, tubes and ovaries were inspected and were normal. Once we were satisfied with the hemostasis, attention was turned to closure of the abdominal incision. The peritoneum, muscles and fascia were closed in layers using 0-Vicryl sutures. The subcutaneous tissue was closed with 3-0 plain sutures. The skin was closed with a subcuticular suture of 4-0 Vicryl followed by benzoin, Steri-Strips and a Telfa dressing. The patient was moved to the recovery room in stable condition with the Owens catheter draining clear urine. Instruments, sponge and needle counts were reported as correct. Estimated blood loss was 600 mL. There were no complications.
--- NOTE | 2019-04-01 13:27 | Post Anesthesia Evaluation ---
- Post Anesthesia Evaluation Patient Participated: Yes Airway Patent: Yes Stable Respiratory Function: Yes Nausea/Vomiting: No Temp > 96.8F: Yes Pain Manageable: Yes Adequeate Hydration: Yes Anesthesia Complications: No Block Receding Appropriately: Yes Patient on Ventilator: No
[2019-04-01] MEDS ORDERED: miSOPROStol 200 MCG TAB ONE (14:29)
[2019-04-01] MEDS ORDERED: miSOPROStol 200 MCG TAB PR ONE (14:35)
[2019-04-01] MEDS ORDERED: CARBOPROST TROMETHAMINE 250 MCG/1 ML INJ IM ONE ×2 (14:49→14:50)
[2019-04-01] MEDS ORDERED: LOPERAMIDE 2 MG CAP PO PRN (14:52)
[2019-04-01] MEDS ORDERED: SODIUM CHLORIDE 0.9% 500 ML 500 ML IV SCH (15:00)
--- NOTE | 2019-04-01 15:24 | Event Note ---
Date: 04/01/19 I was called by nurse and noted that she was bleeding. I came to assess patient and noted several small clots reveleed in os. Sterile speculum placed and noted decrease bleeding after 1000mg cytotec and hemabate with 2 bags of pitocin. I will draw cbc and have type and hold until next cbc returns. Will also draw another CBC in 4 hrs.
[2019-04-01 15:47] LABS: Basophils % (Auto) 0.1 % (0.0-1.8); Eosinophils % (Auto) 0.3 % (0.0-4.3); Hematocrit 24.8 % (30.3-42.9); Lymphocytes # (Auto) 1.4 K/mm3 (1.2-5.4); Lymphocytes % (Auto) 9.9 % (13.4-35.0); Mean Corpuscular HGB Conc 32 % (30-34); Mean Corpuscular Volume 79 fl (79-97); Monocytes # (Auto) 0.6 K/mm3 (0.0-0.8); Monocytes % (Auto) 4.4 % (0.0-7.3); Platelet Count 226 K/mm3 (140-440); Red Blood Count 3.12 M/mm3 (3.65-5.03); Red Cell Distribution Width 14.6 % (13.2-15.2)
[2019-04-01] MEDS: KETOROLAC 30 MG/1 ML INJ IV PRN ×2 (16:53→23:23)
[2019-04-01] MEDS: MORPHINE 2 MG/1 ML INJ IV PRN (17:45)
[2019-04-01 20:21] LABS: Basophils % (Auto) 0.3 % (0.0-1.8); Eosinophils % (Auto) 0.1 % (0.0-4.3); Hematocrit 24.5 % (30.3-42.9); Lymphocytes # (Auto) 1.3 K/mm3 (1.2-5.4); Lymphocytes % (Auto) 7.6 % (13.4-35.0); Mean Corpuscular HGB Conc 33 % (30-34); Mean Corpuscular Volume 80 fl (79-97); Monocytes # (Auto) 1.1 K/mm3 (0.0-0.8); Monocytes % (Auto) 6.8 % (0.0-7.3); Platelet Count 210 K/mm3 (140-440); Red Blood Count 3.07 M/mm3 (3.65-5.03); Red Cell Distribution Width 14.7 % (13.2-15.2)
[2019-04-02] MEDS: D5W/LACTATED RINGERS 1,000 ML IV SCH ×2 (00:25→05:20)
[2019-04-02] MEDS: MORPHINE 2 MG/1 ML INJ IV PRN (03:35)
[2019-04-02] MEDS ORDERED: TETANUS,DIPH,PERTUSS(ACELL) VACCINE 0.5 ML SYRINGE IM ONE (06:00)
[2019-04-02] MEDS ORDERED: MEASLES, MUMPS & RUBELLA 12,500 UNIT/0.5 ML VACCINE SUB-Q ONE (06:00)
[2019-04-02 08:21] LABS: Hematocrit 20.1 % (30.3-42.9); Hemoglobin 6.6 gm/dl (10.1-14.3)
--- NOTE | 2019-04-02 08:45 | Progress Note ---
Assessment and Plan A/P POD1 s/p repeat csec and btl PP hemorrhage s/p medication and packing VSS packing removed acute anemia- transfuse 2 U prbc recheck 4 hrs after blood transfusion close monitor of maternal vs Subjective - Subjective Date of service: 04/02/19 Principal diagnosis: s/p repeat csec and BTL Interval history: This is a 33 yo at 37 weeks here for scheduled repeat csearean. She is apatient of [facility] started care at 10 weeks. 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 She has hx of cs xe for placenta previa. She had abn quad screen for ONTD but falsely positive. Patient reports: appetite normal, voiding normally, pain well controlled, flatus, ambulating normally : doing well Objective - Vital Signs Latest vital signs: Vital Signs Temp Pulse Resp BP BP Pulse Ox 04/02/19 04:00 98.6 F 77 18 122/79 04/02/19 03:35 18 04/02/19 00:00 98.6 F 74 18 123/69 04/01/19 23:23 18 04/01/19 21:37 77 144/95 04/01/19 21:01 18 04/01/19 20:00 98.6 F 72 18 144/95 04/01/19 16:08 82 123/81 100 04/01/19 15:40 98.2 F 78 18 126/88 100 04/01/19 15:30 82 16 132/80 100 04/01/19 15:00 78 18 126/88 100 04/01/19 14:30 70 16 128/78 100 04/01/19 14:00 72 13 132/80 100 04/01/19 13:50 68 13 133/85 100 04/01/19 13:45 72 12 136/81 100 04/01/19 13:40 70 10 L 133/84 100 04/01/19 13:35 71 14 135/89 99 04/01/19 13:30 86 11 L 128/83 99 04/01/19 13:25 76 13 128/83 99 04/01/19 13:20 97.6 F 80 11 L 131/81 99 04/01/19 11:12 92 H 141/91 04/01/19 10:40 97.4 F L 18 Intake and Output 04/01/19 04/02/19 04/02/19 23:59 07:59 15:59 Intake Total 300 914.583 Output Total 1600 Balance 300 -685.417 Intake: IV 614.583 D5lr 1,000 ml @ 125 mls/ 614.583 hr IV DIRECT PARKER Rx#: [id number] Intake, Free Water 300 300 Output: Urine 1600 Indwelling Catheter 1600 Other: Total, Output Amount 1600 - Exam Breasts: Present: normal Cardiovascular: Present: Regular rate, Normal S1 Lungs: Present: Clear to auscultation, Normal air movement Abdomen: Present: normal appearance, soft, normal bowel sounds. Absent: distention, tenderness, guarding Vulva: both: normal Uterus: Present: normal, firm, fundal height below umbilicus. Absent: bogginess, tenderness Extremities: Present: normal Deep Tendon Reflex Grade: Normal +2 Incision: Present: normal, dry, intact - Labs Labs: Abnormal lab results 04/01/19 04/01/19 04/01/19 Range/Units 10:50 10:50 15:20 WBC 14.4 H (4.5-11.0) K/mm3 RBC 3.12 L (3.65-5.03) M/mm3 Hgb 8.0 L D (10.1-14.3) gm/dl Hct 24.8 L D (30.3-42.9) % MCH 26 L 26 L (28-32) pg Lymph % (Auto) 9.9 L (13.4-35.0) % Lymph # 0.9 L (1.2-5.4) K/mm3 [place] # (0.0-0.8) K/mm3 Seg Neutrophils % 77.5 H 85.3 H (40.0-70.0) % Seg Neutrophils # 12.3 H (1.8-7.7) K/mm3 Crossmatch See Detail 04/01/19 04/02/19 Range/Units 20:04 07:59 WBC 16.8 H (4.5-11.0) K/mm3 RBC 3.07 L (3.65-5.03) M/mm3 Hgb 8.0 L 6.6 L (10.1-14.3) gm/dl Hct 24.5 L 20.1 L (30.3-42.9) % MCH 26 L (28-32) pg Lymph % (Auto) 7.6 L (13.4-35.0) % Lymph # (1.2-5.4) K/mm3 [place] # 1.1 H (0.0-0.8) K/mm3 Seg Neutrophils % 85.2 H (40.0-70.0) % Seg Neutrophils # 14.3 H (1.8-7.7) K/mm3 Crossmatch
[2019-04-02] MEDS ORDERED: SODIUM CHLORIDE 0.9% 500 ML 500 ML IV SCH (09:00)
[2019-04-02] MEDS ORDERED: diphenhydrAMINE 50 MG CAP PO SCH (10:00)
[2019-04-02] MEDS: FERROUS SULFATE 325 MG TAB PO SCH (10:02)
[2019-04-02] MEDS: PRENATAL VIT27-FE FUMARATE-FOLIC ACID VIT TAB PO SCH (10:02)
[2019-04-02] MEDS: oxyCODONE /ACETAMINOPHEN 5-325MG TAB PO PRN (16:12)
[2019-04-02 19:40] LABS: Hematocrit 27.8 % (30.3-42.9); Hemoglobin 9.3 gm/dl (10.1-14.3)
[2019-04-02] MEDS: SENNOSIDES 8.6 MG TAB PO PRN (22:29)
[2019-04-02] MEDS: HYDROcodone/ACETAMINOPHEN 5-325 MG TAB PO PRN (22:29)
[2019-04-03] MEDS: oxyCODONE /ACETAMINOPHEN 5-325MG TAB PO PRN ×3 (03:24→17:38)
--- NOTE | 2019-04-03 08:34 | Progress Note ---
Assessment and Plan A: POD2 s/p repeat c/s and PPH, 2 units PRBC transfused Chronic hypertension Acute anemia Afebrile P: Fe BID IM consult for HTN Anticipate d/c to home on POD3 Subjective - Subjective Date of service: 04/03/19 Principal diagnosis: s/p repeat csec Interval history: POD2 s/p repeat c/s and BTL Patient reports: appetite normal, voiding normally, pain well controlled, ambulating normally [place]: doing well, nursing well (both), bottle feeding Objective - Vital Signs Latest vital signs: Vital Signs Temp Pulse Resp BP BP Pulse Ox 04/03/19 07:55 97.5 F L 77 18 151/93 95 04/03/19 02:04 98.4 F 88 18 138/90 98 04/02/19 22:33 77 158/88 04/02/19 16:40 98.1 F 73 18 148/79 04/02/19 16:09 98.2 F 78 16 153/91 100 04/02/19 15:39 98.5 F 75 16 155/91 100 04/02/19 15:09 98.2 F 76 16 158/88 98 04/02/19 14:39 98.8 F 76 18 158/88 99 04/02/19 14:09 78 16 149/82 100 04/02/19 13:39 98.7 F 84 16 141/84 98 04/02/19 13:19 97.1 F L 66 18 122/83 04/02/19 13:09 98.7 F 78 18 139/81 98 04/02/19 12:54 98.6 F 85 16 126/62 100 04/02/19 12:52 98.8 F 85 16 126/62 100 04/02/19 11:59 98.6 F 80 16 143/81 100 04/02/19 11:29 77 16 149/84 99 04/02/19 11:14 98.5 F 78 16 138/74 100 04/02/19 08:48 97.3 F L 80 18 136/76 Intake and Output 04/02/19 04/03/19 04/03/19 23:59 07:59 15:59 Intake Total 610 360 Output Total 500 Balance 110 360 Intake: Oral 360 120 Intake, Free Water 240 Blood Product 250 Leukoreduced Red Blood 250 Cells Unit [id number] Output: Urine 500 Void 500 Other: Total, Intake Amount 120 120 Total, Output Amount 500 # Voids Void 0 - Exam Lungs: Present: Normal air movement Abdomen: Present: soft Uterus: Present: firm, fundal height below umbilicus. Absent: bogginess, tenderness Extremities: Present: normal Incision: Present: normal, dry, intact - Labs Labs: Abnormal lab results 04/01/19 04/02/19 Range/Units 10:50 19:19 Hgb 9.3 L (10.1-14.3) gm/dl Hct 27.8 L D (30.3-42.9) % Crossmatch See Detail
[2019-04-03] MEDS: MAGNESIUM HYDROXIDE (MOM) ORAL LIQD UDC PO PRN (10:28)
[2019-04-03] MEDS: FERROUS SULFATE 325 MG TAB PO SCH (10:29)
[2019-04-03] MEDS: PRENATAL VIT27-FE FUMARATE-FOLIC ACID VIT TAB PO SCH (10:45)
--- NOTE | 2019-04-04 09:32 | Progress Note ---
Assessment and Plan A: POD# 3 s/p repeat at 37 wks now with sudden elevation in blood pressure and headache P: Transfer pt to labor and delivery for 24 hrs of magnesium sulfate for seizure prophylaxis. Continue to monitor clinically. Subjective - Subjective Date of service: 04/04/19 Principal diagnosis: s/p repeat csec Interval history: Pt reports headache this morning and her blood pressures overnight have reached severe range. Otherwise no overnight events. The patient does have a h/o preeclampsia. Patient reports: appetite normal, voiding normally, pain well controlled, flatus, ambulating normally, no bowel movement [place]: doing well Objective - Vital Signs Latest vital signs: Vital Signs Temp Pulse Resp BP BP Pulse Ox 04/04/19 04:00 98.6 F 76 18 137/85 04/04/19 00:00 98.6 F 74 18 121/72 04/03/19 22:58 75 170/96 04/03/19 16:09 98.2 F 77 18 145/88 96 Intake and Output 04/03/19 04/04/19 04/04/19 22:59 06:59 14:59 Intake Total 300 Balance 300 Intake: Intake, Free Water 300 Other: # Voids Void 2 1 - Exam Breasts: Present: deferred Cardiovascular: Present: Regular rate Lungs: Present: Clear to auscultation Abdomen: Present: soft, normal bowel sounds Uterus: Present: fundal height below umbilicus Extremities: Present: edema (trace ) Incision: Present: intact
[2019-04-04] MEDS ORDERED: CALCIUM GLUCONATE 1000 MG/10 ML INJ IV ONE (09:48)
[2019-04-04] MEDS ORDERED: MAGNESIUM SULFATE 4 GM/100 ML BAG IV ONE (10:00)
[2019-04-04] MEDS ORDERED: LACTATED RINGERS 1,000 ML ONE (10:03)
[2019-04-04] MEDS ORDERED: CALCIUM GLUCONATE 1,000 MG in SODIUM CHLORIDE 0.9% 50 ML IV ONE (10:30)
[2019-04-04] MEDS: LACTATED RINGERS 1,000 ML IV SCH ×2 (10:45→22:09)
[2019-04-04] MEDS: FERROUS SULFATE 325 MG TAB PO SCH (10:45)
[2019-04-04] MEDS: MAGNESIUM SULFATE 40GM/1000ML 40 GM/1,000 ML BAG IV SCH (10:45)
[2019-04-04] MEDS: PRENATAL VIT27-FE FUMARATE-FOLIC ACID VIT TAB PO SCH (10:46)
[2019-04-04] MEDS: IBUPROFEN 800 MG TAB PO PRN (10:48)
[2019-04-04 11:12] LABS: Hematocrit 24.7 % (30.3-42.9); Hemoglobin 8.5 gm/dl (10.1-14.3); Mean Corpuscular HGB Conc 35 % (30-34); Mean Corpuscular Volume 81 fl (79-97); Platelet Count 220 K/mm3 (140-440); Red Blood Count 3.06 M/mm3 (3.65-5.03); Red Cell Distribution Width 15.4 % (13.2-15.2)
[2019-04-04 11:38] LABS: Alanine Aminotransferase 18 units/L (7-56); Uric Acid 4.5 mg/dL (3.5-7.6)
[2019-04-04] MEDS: hydrALAZINE 20 MG/1 ML INJ IV PRN ×3 (14:12→20:09)
[2019-04-04] MEDS: HYDROcodone/ACETAMINOPHEN 5-325 MG TAB PO PRN (18:20)
--- NOTE | 2019-04-04 21:00 | Consultation ---
History of Present Illness - Reason for Consult Consult date: 04/04/19 HTN Requesting physician: CHELA VIGIL - History of Present Illness 33-year-old female with HTN, POD #3 S/P . Consult placed by Dr. Vigil for hypertension. Patient seen and evaluated in her room. Patient denies fever, chills, chest pain, palpitation, shortness of breath, bright red blood per rectum, leg swelling, calf pain, headache, productive cough, or recent ill contacts. Patient denies any current complaints at time of my evaluation. No reported nursing events. Past History Past Medical History: hypertension Past Surgical History: Social history: single. denies: smoking, alcohol abuse, prescription drug abuse Family history: hypertension Medications and Allergies Allergies Allergy/AdvReac Type Severity Reaction Status Date / Time No Known Allergies Allergy Verified 04/30/14 15:51 Home Medications Medication Instructions Recorded Confirmed Last Taken Type 19 Chewable Tablet 1 tab PO DAILY 06/04/14 04/02/19 03/23/19 History labetaloL [Labetalol 100mg TAB] 300 mg PO BID #60 tablet 06/19/17 04/02/19 03/24/19 Rx Ferrous Sulfate [Feosol 325 MG tab] 325 mg PO BID #60 tablet 04/03/19 Unknown Rx Ibuprofen [Motrin 800 MG tab] 800 mg PO Q8HR PRN #30 tablet 04/03/19 Unknown Rx oxyCODONE /ACETAMINOPHEN [Percocet 1 tab PO Q6HR PRN #30 tablet 04/03/19 Unknown Rx 5/325] Active Meds: Active Medications Acetaminophen (Tylenol) 650 mg PO Q4H PRN PRN Reason: Fever >100.5/CORDERO Last Admin: 04/02/19 10:46 Dose: 650 mg Documented by: Acetaminophen/Hydrocodone Bitart (B[place]soe 5/325) 1 each PO Q6H PRN PRN Reason: Pain, Moderate (4-6) Last Admin: 04/04/19 18:20 Dose: 1 each Documented by: Ferrous Sulfate (Feosol) 325 mg PO QDAY PARKER Last Admin: 04/04/19 10:45 Dose: 325 mg Documented by: Hydralazine HCl (Apresoline) 5 mg IV Q30MIN PRN PRN Reason: Hypertension Last Admin: 04/04/19 20:09 Dose: 5 mg Documented by: Hydrocortisone Acetate (Anucort-Hc) 25 mg ME BID PRN PRN Reason: Hemorrhoids Hydromorphone HCl (Dilaudid) 0.5 mg IV Q4H PRN PRN Reason: breakthrough pain > 7/10 Last Admin: 04/01/19 21:01 Dose: 0.5 mg Documented by: Oxytocin/Sodium Chloride (Pitocin/Ns 20 Unit/1000ml Drip) 20 units in 1,000 mls @ 250 mls/hr IV DIRECT PARKER Lactated Ringer's (Lactated Ringers) 1,000 mls @ 125 mls/hr IV DIRECT PARKER Last Admin: 04/04/19 10:45 Dose: 75 mls/hr Documented by: Magnesium Sulfate (Magnesium Sulfate 40gm/1000ml) 40 gm in 1,000 mls @ 50 mls/hr IV DIRECT PARKER Last Admin: 04/04/19 10:45 Dose: 2 gm/hr, 50 mls/hr Documented by: Ibuprofen (Ibuprofen) 800 mg PO Q6H PRN PRN Reason: Pain, Mild (1-3) Last Admin: 04/04/19 10:48 Dose: 800 mg Documented by: Ketorolac Tromethamine (Toradol) 15 mg IV Q6H PRN PRN Reason: Pain, Mild (1-3) Stop: 04/06/19 13:05 Ketorolac Tromethamine (Toradol) 30 mg IV Q6H PRN PRN Reason: Pain, Moderate (4-6) Stop: 04/06/19 13:05 Last Admin: 04/01/19 23:23 Dose: 30 mg Documented by: Labetalol HCl (Labetalol) 300 mg PO BID [facility] Last Admin: 04/04/19 10:45 Dose: 300 mg Documented by: Loperamide HCl (Imodium) 2 mg PO Q2H PRN PRN Reason: Diarrhea Last Admin: 04/01/19 15:37 Dose: 2 mg Documented by: Magnesium Hydroxide (Milk Of Magnesia) 30 ml PO QHS PRN PRN Reason: Constip Unrelieved By Senna Last Admin: 04/03/19 10:28 Dose: 30 ml Documented by: Morphine Sulfate (Morphine) 2 mg IV Q4H PRN PRN Reason: Pain, Moderate (4-6) Last Admin: 04/02/19 03:35 Dose: 2 mg Documented by: Morphine Sulfate (Morphine) 4 mg IV Q4H PRN PRN Reason: Pain , Severe (7-10) Multi-Ingredient Ointment (Lansinoh) 1 applic TP PRN PRN PRN Reason: dryness/cracking Multivitamins/Iron/Calcium ( Vitamin) 1 each PO QDAY PARKER Last Admin: 04/04/19 10:46 Dose: 1 each Documented by: Naloxone HCl (Naloxone) 0.1 mg IV Q2MIN PRN PRN Reason: Res Rate </= 8 or 02 SAT < 92% Ondansetron HCl (Zofran) 4 mg IV Q8H PRN PRN Reason: Nausea And Vomiting Oxycodone/Acetaminophen (Percocet 5/325) 2 tab PO Q6H PRN PRN Reason: Pain, Moderate (4-6) Last Admin: 04/03/19 17:38 Dose: 2 tab Documented by: Promethazine HCl (Phenergan) 25 mg PO Q6H PRN PRN Reason: Nausea And Vomiting Promethazine HCl (Phenergan) 25 mg ME Q6H PRN PRN Reason: Nausea And Vomiting Senna (Senokot) 17.2 mg PO QHS PRN PRN Reason: Constipation Last Admin: 04/02/19 22:29 Dose: 17.2 mg Documented by: Simethicone (Mylicon) 80 mg PO Q6H PRN PRN Reason: Gas pain Last Admin: 04/02/19 22:29 Dose: 80 mg Documented by: Kyra Georgette/Glycerin (Tucks Pad) 1 each TP PRN PRN PRN Reason: Hemorrhoids/cleansing/soothing Review of Systems Constitutional: no weight loss, no weight gain, no fever, no chills Ears, nose, mouth and throat: no ear pain, no tinnitis, no decreased hearing, no nasal congestion, no nasal discharge Breasts: no change in shape, no mass Cardiovascular: no chest pain, no orthopnea, no edema, no syncope Respiratory: no cough, no cough with sputum, no excessive sputum Gastrointestinal: no nausea, no vomiting, no diarrhea Genitourinary Female: no pelvic pain, no flank pain, no urgency, no stress incontinence Rectal: no pain, no incontinence, no bleeding Musculoskeletal: no neck stiffness, no neck pain, no shooting arm pain, no low back pain, no leg numbness/tingling Integumentary: no rash, no redness, no sores Neurological: no head injury, no transient paralysis, no paralysis, no weakness, no parathesias, no numbness, no seizures Psychiatric: no anxiety, no memory loss, no sleep disturbances, no hypersomnia Endocrine: no cold intolerance, no heat intolerance, no excessive thirst, no polydipsia, no nocturia, no excessive sweating Hematologic/Lymphatic: no easy bruising, no lymphadenopathy Allergic/Immunologic: no allergic rhinitis, no wheezing, no persistent infections, no anaphylaxis Exam - Constitutional Vitals: Temp Pulse Resp BP Pulse Ox 97.8 F 88 15 157/100 98 04/04/19 12:40 04/04/19 20:56 04/04/19 12:40 04/04/19 20:47 04/04/19 20:56 General appearance: Present: no acute distress, obese - EENT Eyes: Present: PERRL ENT: hearing intact, clear oral mucosa - Neck Neck: Present: supple, normal ROM - Respiratory Respiratory effort: normal Respiratory: bilateral: CTA - Cardiovascular Heart Sounds: Present: S1 & S2. Absent: rub, click - Extremities Extremities: pulses symmetrical, No edema Peripheral Pulses: within normal limits - Abdominal General gastrointestinal: Present: soft, non-tender, non-distended, normal bowel sounds Female genitourinary: Present: normal - Integumentary Integumentary: Present: clear, warm, dry - Musculoskeletal Musculoskeletal: gait normal, strength equal bilaterally - Psychiatric Psychiatric: appropriate mood/affect, intact judgment & insight - Neurologic Neurologic: CNII-XII intact, moves all extremities Results - Labs CBC & Chem 7: 04/04/19 10:37 04/04/19 10:37 Labs: Abnormal lab results 04/04/19 04/04/19 04/04/19 Range/Units 10:37 10:37 19:26 WBC 11.2 H (4.5-11.0) K/mm3 RBC 3.06 L (3.65-5.03) M/mm3 Hgb 8.5 L (10.1-14.3) gm/dl Hct 24.7 L (30.3-42.9) % MCHC 35 H (30-34) % RDW 15.4 H (13.2-15.2) % Magnesium 5.00 H (1.7-2.3) mg/dL Lactate Dehydrogenase 295 H (91-180) units/L Assessment and Plan - Patient Problems (1) Hypertension Current Visit: Yes Status: Acute Qualifiers: Hypertension type: essential hypertension Qualified Code(s): I10 - Essential (primary) hypertension Plan to address problem: Continue metoprolol twice daily, monitor blood pressure every shift, continue magnesium sulfate drip,
[2019-04-05] MEDS: IBUPROFEN 800 MG TAB PO PRN ×2 (02:13→23:46)
[2019-04-05] MEDS: MAGNESIUM SULFATE 40GM/1000ML 40 GM/1,000 ML BAG IV SCH (06:34)
--- NOTE | 2019-04-05 10:57 | Progress Note ---
Assessment and Plan - Patient Problems (1) Chronic hypertension in obstetric context Current Visit: No Status: Acute Qualifiers: Trimester: third trimester Qualified Code(s): O10.913 - Unspecified pre- existing hypertension complicating , third trimester Plan to address problem: magnesium scheduled to be discontinued today continue to monitor blood pressures closely Subjective - Subjective Date of service: 04/05/19 Principal diagnosis: s/p repeat csec Interval history: Patient is completing 24hrs of magnesium. Blood pressures remain elevated. Patient states pain is being controlled. Patient reports: appetite normal, pain well controlled : doing well Objective - Vital Signs Latest vital signs: Vital Signs Temp Pulse Resp BP BP Pulse Ox 04/05/19 10:48 83 165/103 04/05/19 10:46 83 165/103 04/05/19 10:44 83 165/86 04/05/19 10:03 91 H 164/103 04/05/19 09:55 95 H 167/104 04/05/19 09:54 98 H 159/102 04/05/19 07:32 90 164/100 04/05/19 07:29 149 H 90 04/05/19 07:28 89 99 04/05/19 07:26 97.8 F 94 H 18 161/96 99 04/05/19 07:17 94 H 161/96 04/05/19 07:02 91 H 154/92 04/05/19 06:47 91 H 164/99 04/05/19 06:32 86 154/93 04/05/19 06:17 90 160/87 04/05/19 06:02 96 H 159/94 04/05/19 05:47 90 155/93 04/05/19 05:32 91 H 153/91 04/05/19 05:17 90 153/91 04/05/19 05:02 93 H 160/96 04/05/19 04:47 87 164/92 04/05/19 04:17 86 139/82 04/05/19 04:02 89 140/83 04/05/19 03:47 99 H 149/84 04/05/19 03:32 95 H 154/84 04/05/19 03:17 85 167/94 04/05/19 03:02 86 133/85 04/05/19 02:47 83 132/83 01/25/20 02:32 82 132/81 01/25/20 02:17 87 139/83 04/05/19 02:11 86 98 04/05/19 02:06 96 H 98 04/05/19 02:02 92 H 145/83 04/05/19 02:01 84 98 04/05/19 01:56 90 97 04/05/19 01:51 86 96 04/05/19 01:47 86 126/77 04/05/19 01:46 92 H 97 04/05/19 01:41 84 97 04/05/19 01:36 83 100 04/05/19 01:32 87 128/78 04/05/19 01:31 87 97 04/05/19 01:26 86 100 04/05/19 01:21 85 99 04/05/19 01:17 87 130/78 04/05/19 01:16 86 99 04/05/19 01:11 88 97 04/05/19 01:06 85 98 04/05/19 01:02 85 128/78 04/05/19 01:01 92 H 99 04/05/19 00:56 90 98 04/05/19 00:51 89 98 04/05/19 00:47 89 128/79 04/05/19 00:46 89 99 04/05/19 00:41 87 97 04/05/19 00:36 84 97 04/05/19 00:32 87 128/77 04/05/19 00:31 87 98 04/05/19 00:26 88 98 04/05/19 00:21 84 97 04/05/19 00:17 86 130/76 04/05/19 00:16 88 97 04/05/19 00:11 86 97 04/05/19 00:06 87 98 04/05/19 00:02 98.1 F 86 18 126/76 04/05/19 00:01 86 98 24 23:56 84 97 2420 23:51 88 97 2420 23:47 87 135/81 20 23:46 89 97 2420 23:41 87 98 2420 23:36 89 99 2420 23:32 88 135/80 2420 23:31 88 99 2420 23:26 86 98 01/24/20 23:21 88 98 04/04/19 23:17 86 132/79 04/04/19 23:16 84 98 04/04/19 23:11 80 99 04/04/19 23:06 82 98 04/04/19 23:02 89 147/98 04/04/19 23:01 88 99 04/04/19 22:56 95 H 99 04/04/19 22:51 87 99 04/04/19 22:47 88 141/96 04/04/19 22:46 88 99 04/04/19 22:41 83 99 04/04/19 22:36 83 99 04/04/19 22:32 81 149/100 04/04/19 22:31 81 100 04/04/19 22:26 82 99 04/04/19 22:21 81 98 04/04/19 22:17 82 151/99 04/04/19 22:16 82 99 04/04/19 22:11 81 99 04/04/19 22:06 92 H 100 04/04/19 22:02 88 154/98 04/04/19 22:01 80 99 04/04/19 21:56 79 98 04/04/19 21:51 78 98 04/04/19 21:47 88 155/99 04/04/19 21:46 80 98 04/04/19 21:41 74 99 04/04/19 21:36 83 99 04/04/19 21:32 84 156/99 04/04/19 21:31 81 98 04/04/19 21:26 85 99 04/04/19 21:25 88 157/97 04/04/19 21:24 88 157/97 04/04/19 21:21 93 H 99 04/04/19 21:17 90 154/96 04/04/19 21:16 80 98 04/04/19 21:11 84 98 04/04/19 21:06 80 99 04/04/19 21:02 88 153/96 04/04/19 21:01 81 99 04/04/19 20:56 88 98 04/04/19 20:51 79 98 04/04/19 20:47 88 157/100 04/04/19 20:46 84 99 04/04/19 20:41 92 H 99 04/04/19 20:36 82 98 04/04/19 20:32 85 161/95 04/04/19 20:31 82 99 04/04/19 20:26 80 181/108 98 04/04/19 20:21 77 100 04/04/19 20:17 82 182/109 04/04/19 20:16 79 98 04/04/19 20:11 90 99 04/04/19 20:10 97.6 F 16 04/04/19 20:09 81 186/109 04/04/19 20:06 98 H 98 04/04/19 20:04 88 186/109 04/04/19 20:03 82 173/109 04/04/19 20:02 87 173/106 04/04/19 20:01 84 98 04/04/19 19:56 82 100 04/04/19 19:51 77 100 04/04/19 19:47 86 170/106 04/04/19 19:46 76 99 04/04/19 19:41 83 99 04/04/19 19:36 89 99 04/04/19 19:32 87 159/95 04/04/19 19:31 90 99 04/04/19 19:26 89 98 04/04/19 19:21 88 98 04/04/19 19:17 87 152/95 04/04/19 19:16 87 98 04/04/19 19:11 86 99 04/04/19 19:06 106 H 99 04/04/19 19:02 95 H 152/96 04/04/19 19:01 92 H 98 04/04/19 18:56 92 H 99 04/04/19 18:51 102 H 100 04/04/19 18:47 100 H 151/94 04/04/19 18:46 91 H 99 04/04/19 18:41 96 H 100 04/04/19 18:36 91 H 99 04/04/19 18:32 94 H 149/96 04/04/19 18:31 94 H 100 04/04/19 18:26 91 H 99 04/04/19 18:21 94 H 99 04/04/19 18:17 93 H 152/98 04/04/19 18:16 90 100 04/04/19 18:11 95 H 100 04/04/19 18:06 99 H 99 04/04/19 18:02 93 H 155/97 04/04/19 18:01 101 H 99 04/04/19 17:56 99 H 99 04/04/19 17:51 98 H 98 04/04/19 17:47 99 H 161/98 04/04/19 17:46 89 98 04/04/19 17:41 92 H 98 04/04/19 17:36 93 H 98 04/04/19 17:32 99 H 161/99 04/04/19 17:31 92 H 98 04/04/19 17:26 92 H 100 04/04/19 17:21 97 H 98 04/04/19 17:17 98 H 161/94 04/04/19 17:16 97 H 100 04/04/19 17:11 93 H 99 04/04/19 17:06 92 H 99 04/04/19 17:02 84 152/86 04/04/19 17:01 85 99 04/04/19 16:56 91 H 99 04/04/19 16:51 85 99 04/04/19 16:47 96 H 159/97 04/04/19 16:46 90 98 04/04/19 16:41 94 H 99 04/04/19 16:36 98 H 99 04/04/19 16:32 93 H 159/93 04/04/19 16:31 87 99 04/04/19 16:26 83 99 04/04/19 16:21 87 99 04/04/19 16:17 97 H 158/92 04/04/19 16:16 85 97 04/04/19 16:11 86 98 04/04/19 16:06 88 98 04/04/19 16:02 87 158/85 04/04/19 16:01 86 98 04/04/19 15:56 85 99 04/04/19 15:51 83 98 04/04/19 15:47 94 H 164/98 04/04/19 15:46 85 97 04/04/19 15:41 86 97 04/04/19 15:36 88 96 04/04/19 15:31 91 H 176/100 95 04/04/19 15:30 87 167/96 04/04/19 15:26 87 175/93 98 04/04/19 15:21 88 98 04/04/19 15:20 82 163/94 04/04/19 15:16 88 98 04/04/19 15:11 89 99 04/04/19 15:06 90 99 04/04/19 15:02 91 H 163/94 04/04/19 15:01 91 H 98 04/04/19 14:56 99 H 98 04/04/19 14:51 99 H 94 04/04/19 14:46 79 98 04/04/19 14:41 79 97 04/04/19 14:36 78 97 04/04/19 14:31 79 100 04/04/19 14:26 78 98 04/04/19 14:25 85 149/104 04/04/19 14:21 86 98 04/04/19 14:20 80 151/102 04/04/19 14:18 77 154/100 04/04/19 14:16 80 98 04/04/19 14:15 82 155/99 04/04/19 14:12 83 163/103 04/04/19 14:11 77 98 04/04/19 14:06 82 97 04/04/19 14:02 83 163/103 04/04/19 14:01 85 182/104 98 04/04/19 13:56 78 97 04/04/19 13:54 78 93 04/04/19 13:51 94 H 98 04/04/19 13:46 76 98 04/04/19 13:41 76 97 04/04/19 13:36 82 97 04/04/19 13:31 77 98 04/04/19 13:26 78 99 04/04/19 13:24 83 166/102 04/04/19 13:21 83 98 04/04/19 13:16 78 98 04/04/19 13:11 78 98 04/04/19 13:06 87 98 04/04/19 13:01 81 98 04/04/19 12:57 103 H 93 04/04/19 12:56 96 H 94 04/04/19 12:51 77 97 04/04/19 12:46 81 96 04/04/19 12:41 76 98 04/04/19 12:40 97.8 F 15 04/04/19 12:36 78 97 04/04/19 12:31 76 97 04/04/19 12:26 73 97 04/04/19 12:21 75 98 04/04/19 12:16 74 97 04/04/19 12:11 70 97 04/04/19 12:08 73 93 04/04/19 12:06 75 96 04/04/19 12:01 82 97 04/04/19 11:56 75 97 04/04/19 11:51 88 98 04/04/19 11:49 88 159/97 04/04/19 11:48 95 H 94 04/04/19 11:46 91 H 98 04/04/19 11:42 93 H 93 04/04/19 11:41 81 96 04/04/19 11:36 74 98 04/04/19 11:31 74 96 04/04/19 11:26 77 96 04/04/19 11:21 76 97 04/04/19 11:19 80 159/94 04/04/19 11:16 76 97 04/04/19 11:11 79 96 04/04/19 11:06 75 99 04/04/19 11:01 80 100 04/04/19 10:56 88 98 04/04/19 10:51 91 H 98 Intake and Output 04/04/19 04/05/19 04/05/19 22:59 06:59 14:59 Intake Total 855 990.833 Output Total 1100 1900 Balance -245 -909.167 Intake: IV 855 990.833 Lactated Ringers 1,000 ml 855 @ 125 mls/hr IV DIRECT PARKER Rx#:[id number] MAGNESIUM SULFATE 40GM/ 990.833 1000ML 40 gm In 1,000 ml @ 2 GM/HR 50 mls/hr IV DIRECT PARKER Rx#:[id number] Output: Urine 1100 1900 Indwelling Catheter 1100 1900 Other: Total, Output Amount 1100 1900 - Labs Labs: Abnormal lab results 04/04/19 04/04/19 04/04/19 Range/Units 10:37 10:37 19:26 WBC 11.2 H (4.5-11.0) K/mm3 RBC 3.06 L (3.65-5.03) M/mm3 Hgb 8.5 L (10.1-14.3) gm/dl Hct 24.7 L (30.3-42.9) % MCHC 35 H (30-34) % RDW 15.4 H (13.2-15.2) % Magnesium 5.00 H (1.7-2.3) mg/dL Lactate Dehydrogenase 295 H (91-180) units/L 04/04/19 04/05/19 Range/Units 23:01 05:29 WBC (4.5-11.0) K/mm3 RBC (3.65-5.03) M/mm3 Hgb (10.1-14.3) gm/dl Hct (30.3-42.9) % MCHC (30-34) % RDW (13.2-15.2) % Magnesium 5.50 H 6.00 H (1.7-2.3) mg/dL Lactate Dehydrogenase (91-180) units/L
--- NOTE | 2019-04-05 13:07 | Progress Note ---
Assessment and Plan Assessment and plan: Accelerated hypertension. Continue labetalol and consider increasing to 600 mg 3 times daily if no improvement. Continue magnesium Anemia. Patient status post PRBCs. Follow-up H&H. PP hemorrhage s/p medication and packing History Interval history: Patient still with elevated blood pressure. Hospitalist Physical - Constitutional Vitals: Temp Pulse Resp BP Pulse Ox 97.8 F 82 18 151/90 90 04/05/19 07:26 04/05/19 12:30 04/05/19 07:26 04/05/19 12:30 04/05/19 07:29 General appearance: Present: no acute distress, obese - EENT Eyes: Present: PERRL, EOM intact ENT: hearing intact, clear oral mucosa, dentition normal - Neck Neck: Present: supple, normal ROM - Respiratory Respiratory effort: normal Respiratory: bilateral: CTA - Cardiovascular Rhythm: regular Heart Sounds: Present: S1 & S2. Absent: gallop, rub - Extremities Extremities: no ischemia, No edema, Full ROM - Abdominal General gastrointestinal: soft, non-tender, non-distended, normal bowel sounds - Integumentary Integumentary: Present: clear, warm, dry - Neurologic Neurologic: CNII-XII intact, moves all extremities Results - Labs CBC & Chem 7: 04/04/19 10:37 04/04/19 10:37 Labs: Laboratory Last Values WBC 11.2 K/mm3 (4.5-11.0) H 04/04/19 10:37 RBC 3.06 M/mm3 (3.65-5.03) L 04/04/19 10:37 Hgb 8.5 gm/dl (10.1-14.3) L 04/04/19 10:37 Hct 24.7 % (30.3-42.9) L 04/04/19 10:37 MCV 81 fl (79-97) 04/04/19 10:37 MCH 28 pg (28-32) 04/04/19 10:37 MCHC 35 % (30-34) H 04/04/19 10:37 RDW 15.4 % (13.2-15.2) H 04/04/19 10:37 Plt Count 220 K/mm3 (140-440) 04/04/19 10:37 Lymph % (Auto) 7.6 % (13.4-35.0) L 04/01/19 20:04 [place] % (Auto) 6.8 % (0.0-7.3) 04/01/19 20:04 Eos % (Auto) 0.1 % (0.0-4.3) 04/01/19 20:04 Baso % (Auto) 0.3 % (0.0-1.8) 04/01/19 20:04 Lymph # 1.3 K/mm3 (1.2-5.4) 04/01/19 20:04 [place] # 1.1 K/mm3 (0.0-0.8) H 04/01/19 20:04 Eos # 0.0 K/mm3 (0.0-0.4) 04/01/19 20:04 Baso # 0.0 K/mm3 (0.0-0.1) 04/01/19 20:04 Seg Neutrophils % 85.2 % (40.0-70.0) H 04/01/19 20:04 Seg Neutrophils # 14.3 K/mm3 (1.8-7.7) H 04/01/19 20:04 Creatinine 0.7 mg/dL (0.7-1.2) 04/04/19 10:37 Estimated GFR > 60 ml/min 04/04/19 10:37 Uric Acid 4.5 mg/dL (3.5-7.6) 04/04/19 10:37 Magnesium 5.80 mg/dL (1.7-2.3) H 04/05/19 10:17 AST 29 units/L (5-40) 04/04/19 10:37 ALT 18 units/L (7-56) 04/04/19 10:37 Lactate Dehydrogenase 295 units/L (91-180) H 04/04/19 10:37 Blood Type O POSITIVE 04/01/19 10:50 Antibody Screen Negative 04/01/19 10:50 Crossmatch See Detail 04/01/19 10:50 Active Medications - Current Medications Current Medications: Generic Name Dose Route Start Last Admin Trade Name Freq PRN Reason Stop Dose Admin Acetaminophen 650 mg 04/01/19 13:06 04/02/19 10:46 Tylenol PO 650 mg Q4H PRN Administration Fever >100.5/CORDERO Acetaminophen/Hydrocodone Bitart 1 each 04/01/19 13:06 04/04/19 18:20 May 5/325 PO 1 each Q6H PRN Administration Pain, Moderate (4-6) Ferrous Sulfate 325 mg 04/02/19 10:00 04/04/19 10:45 Feosol PO 325 mg QDAY PARKER Administration Hydralazine HCl 5 mg 04/04/19 09:48 04/04/19 20:09 Apresoline IV 5 mg Q30MIN PRN Administration Hypertension Hydrocortisone Acetate 25 mg 04/01/19 13:06 Anucort-Hc [place] BID PRN Hemorrhoids Hydromorphone HCl 0.5 mg 04/01/19 12:57 04/01/19 21:01 Dilaudid IV 0.5 mg Q4H PRN Administration breakthrough pain > 7/10 Oxytocin/Sodium Chloride 20 units in 1,000 mls @ 250 mls/hr 04/01/19 14:00 Pitocin/Ns 20 Unit/1000ml Drip IV DIRECT PARKER Lactated Ringer's 1,000 mls @ 125 mls/hr 04/04/19 10:00 04/04/19 22:09 Lactated Ringers IV 75 mls/hr DIRECT PARKER Administration Magnesium Sulfate 40 gm in 1,000 mls @ 50 mls/hr 04/04/19 10:00 04/05/19 06:34 Magnesium Sulfate 40gm/1000ml IV 2 gm/hr DIRECT PARKER 50 mls/hr Administration 2 GM/HR Ibuprofen 800 mg 04/01/19 13:06 04/05/19 02:13 Ibuprofen PO 800 mg Q6H PRN Administration Pain, Mild (1-3) Ketorolac Tromethamine 15 mg 04/01/19 13:06 Toradol IV 04/06/19 13:05 Q6H PRN Pain, Mild (1-3) Ketorolac Tromethamine 30 mg 04/01/19 13:06 04/01/19 23:23 Toradol IV 04/06/19 13:05 30 mg Q6H PRN Administration Pain, Moderate (4-6) Labetalol HCl 400 mg 04/05/19 22:00 04/05/19 10:48 Labetalol PO 400 mg BID PARKER Administration Loperamide HCl 2 mg 04/01/19 14:52 04/01/19 15:37 Imodium PO 2 mg Q2H PRN Administration Diarrhea Magnesium Hydroxide 30 ml 04/01/19 13:06 04/03/19 10:28 Milk Of Magnesia PO 30 ml QHS PRN Administration Constip Unrelieved By Senna Morphine Sulfate 2 mg 04/01/19 13:06 04/02/19 03:35 Morphine IV 2 mg Q4H PRN Administration Pain, Moderate (4-6) Morphine Sulfate 4 mg 04/01/19 13:06 Morphine IV Q4H PRN Pain , Severe (7-10) Multi-Ingredient Ointment 1 applic 04/01/19 13:06 Lansinoh TP PRN PRN dryness/cracking Multivitamins/Iron/Calcium 1 each 04/02/19 10:00 04/04/19 10:46 Vitamin PO 1 each QDAY PARKER Administration Naloxone HCl 0.1 mg 04/01/19 13:06 Naloxone IV Q2MIN PRN Res Rate </= 8 or 02 SAT < 92% Ondansetron HCl 4 mg 04/01/19 12:57 Zofran IV Q8H PRN Nausea And Vomiting Oxycodone/Acetaminophen 2 tab 04/01/19 13:06 04/03/19 17:38 Percocet 5/325 PO 2 tab Q6H PRN Administration Pain, Moderate (4-6) Promethazine HCl 25 mg 04/01/19 12:57 Phenergan PO Q6H PRN Nausea And Vomiting Promethazine HCl 25 mg 04/01/19 12:57 Phenergan [place] Q6H PRN Nausea And Vomiting Senna 17.2 mg 04/01/19 13:06 04/02/19 22:29 Senokot PO 17.2 mg QHS PRN Administration Constipation Simethicone 80 mg 04/01/19 13:06 04/02/19 22:29 Mylicon PO 80 mg Q6H PRN Administration Gas pain Witch Georgette/Glycerin 1 each 04/01/19 13:06 Tucks Pad TP PRN PRN Hemorrhoids/cleansing/soothing
[2019-04-05] MEDS: oxyCODONE /ACETAMINOPHEN 5-325MG TAB PO PRN (18:25)
[2019-04-05] MEDS: SENNOSIDES 8.6 MG TAB PO PRN (18:25)
[2019-04-05] MEDS: MAGNESIUM HYDROXIDE (MOM) ORAL LIQD UDC PO PRN (23:46)
[2019-04-06] MEDS: oxyCODONE /ACETAMINOPHEN 5-325MG TAB PO PRN (06:36)
[2019-04-06] MEDS: FERROUS SULFATE 325 MG TAB PO SCH (10:31)
[2019-04-06] MEDS: PRENATAL VIT27-FE FUMARATE-FOLIC ACID VIT TAB PO SCH (10:31)
--- NOTE | 2019-04-06 11:49 | Progress Note ---
Assessment and Plan Assessment and plan: Accelerated hypertension. Increased labetalol to 600 mg 3 times a day. Anemia. Patient status post PRBCs. Follow-up H&H. PP hemorrhage s/p medication and packing History Interval history: Patient still with elevated blood pressure. Hospitalist Physical - Constitutional Vitals: Temp Pulse Resp BP Pulse Ox 98.2 F 77 20 155/92 99 04/06/19 08:31 04/06/19 10:17 04/06/19 08:31 04/06/19 10:17 04/06/19 04:27 General appearance: Present: no acute distress, obese - EENT Eyes: Present: PERRL, EOM intact ENT: hearing intact, clear oral mucosa, dentition normal - Neck Neck: Present: supple, normal ROM - Respiratory Respiratory effort: normal Respiratory: bilateral: CTA - Cardiovascular Rhythm: regular Heart Sounds: Present: S1 & S2. Absent: gallop, rub - Extremities Extremities: no ischemia, No edema, Full ROM - Abdominal General gastrointestinal: soft, non-tender, non-distended, normal bowel sounds - Integumentary Integumentary: Present: clear, warm, dry - Neurologic Neurologic: CNII-XII intact, moves all extremities Results - Labs CBC & Chem 7: 04/04/19 10:37 04/04/19 10:37 Labs: Laboratory Last Values WBC 11.2 K/mm3 (4.5-11.0) H 04/04/19 10:37 RBC 3.06 M/mm3 (3.65-5.03) L 04/04/19 10:37 Hgb 8.5 gm/dl (10.1-14.3) L 04/04/19 10:37 Hct 24.7 % (30.3-42.9) L 04/04/19 10:37 MCV 81 fl (79-97) 04/04/19 10:37 MCH 28 pg (28-32) 04/04/19 10:37 MCHC 35 % (30-34) H 04/04/19 10:37 RDW 15.4 % (13.2-15.2) H 04/04/19 10:37 Plt Count 220 K/mm3 (140-440) 04/04/19 10:37 Lymph % (Auto) 7.6 % (13.4-35.0) L 04/01/19 20:04 Webb % (Auto) 6.8 % (0.0-7.3) 04/01/19 20:04 Eos % (Auto) 0.1 % (0.0-4.3) 04/01/19 20:04 Baso % (Auto) 0.3 % (0.0-1.8) 04/01/19 20:04 Lymph # 1.3 K/mm3 (1.2-5.4) 04/01/19 20:04 Webb # 1.1 K/mm3 (0.0-0.8) H 04/01/19 20:04 Eos # 0.0 K/mm3 (0.0-0.4) 04/01/19 20:04 Baso # 0.0 K/mm3 (0.0-0.1) 04/01/19 20:04 Seg Neutrophils % 85.2 % (40.0-70.0) H 04/01/19 20:04 Seg Neutrophils # 14.3 K/mm3 (1.8-7.7) H 04/01/19 20:04 Creatinine 0.7 mg/dL (0.7-1.2) 04/04/19 10:37 Estimated GFR > 60 ml/min 04/04/19 10:37 Uric Acid 4.5 mg/dL (3.5-7.6) 04/04/19 10:37 Magnesium 5.80 mg/dL (1.7-2.3) H 04/05/19 10:17 AST 29 units/L (5-40) 04/04/19 10:37 ALT 18 units/L (7-56) 04/04/19 10:37 Lactate Dehydrogenase 295 units/L (91-180) H 04/04/19 10:37 Blood Type O POSITIVE 04/01/19 10:50 Antibody Screen Negative 04/01/19 10:50 Crossmatch See Detail 04/01/19 10:50 Active Medications - Current Medications Current Medications: Generic Name Dose Route Start Last Admin Trade Name Freq PRN Reason Stop Dose Admin Acetaminophen 650 mg 04/01/19 13:06 04/02/19 10:46 Tylenol PO 650 mg Q4H PRN Administration Fever >100.5/CORDERO Acetaminophen/Hydrocodone Bitart 1 each 04/01/19 13:06 04/04/19 18:20 Vill[place] 5/325 PO 1 each Q6H PRN Administration Pain, Moderate (4-6) Ferrous Sulfate 325 mg 04/02/19 10:00 04/06/19 10:31 Feosol PO 325 mg QDAY PARKER Administration Hydralazine HCl 5 mg 04/04/19 09:48 04/04/19 20:09 Apresoline IV 5 mg Q30MIN PRN Administration Hypertension Hydrocortisone Acetate 25 mg 04/01/19 13:06 Anucort-Hc [place] BID PRN Hemorrhoids Hydromorphone HCl 0.5 mg 04/01/19 12:57 04/01/19 21:01 Dilaudid IV 0.5 mg Q4H PRN Administration breakthrough pain > 7/10 Oxytocin/Sodium Chloride 20 units in 1,000 mls @ 250 mls/hr 04/01/19 14:00 Pitocin/Ns 20 Unit/1000ml Drip IV DIRECT PARKER Lactated Ringer's 1,000 mls @ 125 mls/hr 04/04/19 10:00 04/04/19 22:09 Lactated Ringers IV 75 mls/hr DIRECT PARKER Administration Magnesium Sulfate 40 gm in 1,000 mls @ 50 mls/hr 04/04/19 10:00 04/05/19 06:34 Magnesium Sulfate 40gm/1000ml IV 2 gm/hr DIRECT PARKER 50 mls/hr Administration 2 GM/HR Ibuprofen 800 mg 04/01/19 13:06 04/05/19 23:46 Ibuprofen PO 800 mg Q6H PRN Administration Pain, Mild (1-3) Ketorolac Tromethamine 15 mg 04/01/19 13:06 Toradol IV 04/06/19 13:05 Q6H PRN Pain, Mild (1-3) Ketorolac Tromethamine 30 mg 04/01/19 13:06 04/01/19 23:23 Toradol IV 04/06/19 13:05 30 mg Q6H PRN Administration Pain, Moderate (4-6) Labetalol HCl 600 mg 04/06/19 09:00 04/06/19 08:33 Labetalol PO 600 mg TID PARKER Administration Loperamide HCl 2 mg 04/01/19 14:52 04/01/19 15:37 Imodium PO 2 mg Q2H PRN Administration Diarrhea Magnesium Hydroxide 30 ml 04/01/19 13:06 04/05/19 23:46 Milk Of Magnesia PO 30 ml QHS PRN Administration Constip Unrelieved By Senna Morphine Sulfate 2 mg 04/01/19 13:06 04/02/19 03:35 Morphine IV 2 mg Q4H PRN Administration Pain, Moderate (4-6) Morphine Sulfate 4 mg 04/01/19 13:06 Morphine IV Q4H PRN Pain , Severe (7-10) Multi-Ingredient Ointment 1 applic 04/01/19 13:06 Lansinoh TP PRN PRN dryness/cracking Multivitamins/Iron/Calcium 1 each 04/02/19 10:00 04/06/19 10:31 Vitamin PO 1 each QDAY PARKER Administration Naloxone HCl 0.1 mg 04/01/19 13:06 Naloxone IV Q2MIN PRN Res Rate </= 8 or 02 SAT < 92% Nifedipine 60 mg 04/06/19 12:00 Procardia Xl PO QDAY PARKER Ondansetron HCl 4 mg 04/01/19 12:57 Zofran IV Q8H PRN Nausea And Vomiting Oxycodone/Acetaminophen 2 tab 04/01/19 13:06 04/06/19 06:36 Percocet 5/325 PO 2 tab Q6H PRN Administration Pain, Moderate (4-6) Promethazine HCl 25 mg 04/01/19 12:57 Phenergan PO Q6H PRN Nausea And Vomiting Promethazine HCl 25 mg 04/01/19 12:57 Phenergan [place] Q6H PRN Nausea And Vomiting Senna 17.2 mg 04/01/19 13:06 04/05/19 18:25 Senokot PO 17.2 mg QHS PRN Administration Constipation Simethicone 80 mg 04/01/19 13:06 04/02/19 22:29 Mylicon PO 80 mg Q6H PRN Administration Gas pain Witch Georgette/Glycerin 1 each 04/01/19 13:06 Tucks Pad TP PRN PRN Hemorrhoids/cleansing/soothing
[2019-04-06] MEDS ORDERED: NIFEdipine XL 60 MG TAB PO SCH (12:00)
--- NOTE | 2019-04-06 12:04 | Progress Note ---
Assessment and Plan - Patient Problems (1) Chronic hypertension in obstetric context Current Visit: No Status: Acute Qualifiers: Trimester: third trimester Qualified Code(s): O10.913 - Unspecified pre- existing hypertension complicating , third trimester Plan to address problem: will add procardia to meds if have improvement in blood pressure will discharge home Subjective - Subjective Date of service: 04/06/19 Principal diagnosis: s/p repeat csec Interval history: Patient reports feeling better. Labetalol increased yesterday. Blood pressures continue to be labile. Patient reports: appetite normal, voiding normally, pain well controlled : doing well Objective - Vital Signs Latest vital signs: Vital Signs Temp Pulse Resp BP BP BP Pulse Ox 04/06/19 10:17 77 155/92 04/06/19 08:33 79 196/123 04/06/19 08:31 98.2 F 79 20 196/123 04/06/19 06:54 76 171/91 04/06/19 04:27 98.2 F 76 20 171/99 99 04/06/19 01:21 78 151/98 100 04/05/19 23:45 68 174/91 04/05/19 16:15 98.4 F 93 H 20 163/79 96 04/05/19 14:33 96 H 150/93 04/05/19 14:03 93 H 158/93 04/05/19 13:33 91 H 144/88 04/05/19 13:24 98.0 F 84 18 154/96 98 04/05/19 13:21 91 H 154/96 04/05/19 13:20 84 163/102 04/05/19 12:30 82 151/90 Intake and Output 04/05/19 04/06/19 04/06/19 22:59 06:59 14:59 Intake Total 120 240 120 Balance 120 240 120 Intake: Oral 120 240 120 Other: Total, Intake Amount 120 240 120 # Voids Indwelling Catheter 1 - Exam Abdomen: Present: normal appearance
--- NOTE | 2019-04-06 12:11 | Discharge Summary ---
Providers - Providers Date of Admission: 04/01/19 10:08 Date of discharge: 04/06/19 Attending physician: CHELA SALDAÑA 04/03/19 08:24 Consult to Physician [CONS] Routine Comment: Consulting Provider: ANDREEA ARNOLD Physician Instructions: Reason For Exam: Chronic hypertension Primary care physician: MATTEO SAUNDERS Hospitalization Reason for admission: section Delivery: Procedure: section, repeat low transverse Discharge diagnosis: IUP at term delivered Hospital course: Patient admitted for chronic hypertension and repeat . See op note. complicated for severely elevated blood pressures. Improved with an tihypertensives Condition at discharge: Good Disposition: DC-01 TO HOME OR SELFCARE - Discharge Diagnoses (1) Chronic hypertension in obstetric context Status: Acute Qualifiers: Trimester: third trimester Qualified Code(s): O10.913 - Unspecified pre- existing hypertension complicating , third trimester Plan - Discharge Medications Prescriptions: Ferrous Sulfate [Feosol 325 MG tab] 325 mg PO BID #60 tablet Labetalol HCl [Labetalol 300mg TAB] 600 mg PO BID #120 tablet Ibuprofen [Motrin 800 MG tab] 800 mg PO Q8HR PRN #30 tablet PRN Reason: Pain, Moderate (4-6) Ibuprofen [Motrin] 800 mg PO Q8HR PRN #60 tablet PRN Reason: Pain, Mild (1-3) oxyCODONE /ACETAMINOPHEN [Percocet 5/325] 1 tab PO Q6HR PRN #30 tablet PRN Reason: Pain oxyCODONE /ACETAMINOPHEN [Percocet 5/325] 1 tab PO Q6HR PRN #30 tablet PRN Reason: Pain NIFEdipine XL [Procardia Xl] 60 mg PO QDAY #30 tablet - Provider Discharge Summary Activity: no sex for 6 weeks, no heavy lifting 4 weeks, no strenuous exercise Diet: routine Instructions: routine Additional instructions: [] Smoking cessation referral if applicable(refer to patient education folder for contact #) [] Refer to [facility] Booklet Call your doctor immediately for: * Fever > 100.5 * Heavy vaginal bleeding ( >1 pad per hour) * Severe persistent headache * Shortness of breath * Reddened, hot, painful area to leg or breast * Drainage or odor from incision. * Keep incision clean and dry at all times and follow doctor's instructions regarding bathing/showering schedule followup in 2 weeks - Follow up plan Follow up: MATTEO SAUNDERS MD [Primary Care Provider] - 7 Days
[2019-04-06] MEDS: IBUPROFEN 800 MG TAB PO PRN (12:22)
[2019-04-06 15:37] VITALS: BP 147/88
== END 2019-04-06 20:15 | disposition home or self-care (01) | DRG 765 ==
LOC: OB 10:08 → LD 10:09 → OB 16:20 → LD 04-04 09:32 → OB 04-05 15:45
PROVIDERS: ADMIT Obstetrics & Gynecology; ATTEND Obstetrics & Gynecology
PROC: 10D00Z1 Extraction of Products of Conception, Low, Open Approach (ICD-10-PCS; principal; 2019-04-01)
PROC: 3E0234Z Introduction of Serum, Toxoid and Vaccine into Muscle, Percutaneous Approach (ICD-10-PCS; 2019-04-02)
PROC: 3E0134Z Introduction of Serum, Toxoid and Vaccine into Subcutaneous Tissue, Percutaneous Approach (ICD-10-PCS; 2019-04-02)
PROC: 30233N1 Transfusion of Nonautologous Red Blood Cells into Peripheral Vein, Percutaneous Approach (ICD-10-PCS; 2019-04-02)
DX: O10.92 Unspecified pre-existing hypertension complicating childbirth (principal); D62 Acute posthemorrhagic anemia; O34.211 Maternal care for low transverse scar from previous cesarean delivery; O99.314 Alcohol use complicating childbirth; O32.1XX0 Maternal care for breech presentation, not applicable or unspecified; Z3A.37 37 weeks gestation of pregnancy; Z37.0 Single live birth; Z23 Encounter for immunization; O90.81 Anemia of the puerperium; Z82.49 Family history of ischemic heart disease and other diseases of the circulatory system
CPT/HCPCS: 36415; 82565; 83615; 83735; 84450; 84460; 84550; 85014; 85018; 85025; 85027; 86850; 86900; 86901; 86920; 88307; 90471; 90715; G0378; J0360; J0610; J0690; J1170; J1885; J2270; J2405; J2590; J2765; J3475; J3490; J7040; J7120; J7121; P9016